=== PATIENT | female | born 1970 | race Caucasian/White ===

== ENCOUNTER 2020-12-04 05:11 | Emergency (ER) | payer MEDICAID, SELFPAY ==
[2020-12-04 05:18] VITALS: BP 142/84; PULSE 80; RESP 18; TEMP 36.4; O2SAT 97; BMI 21.5
--- NOTE | 2020-12-04 06:18 | ED_ITS ---
HPI - General Adult General Chief complaint: Back Pain/Injury Stated complaint: Neck/Back pain Time Seen by Provider: 12/04/20 05:59 Source: patient Mode of arrival: ambulatory Limitations: no limitations History of Present Illness HPI narrative: Patient has chronic pain syndrome been to neurologist physical therapist chiropractor PCP questionable diagnosis of fibromyalgia comes here for similar pain in the left upper back no acute trauma patient feels anxious has poor sleep lately not on medication for anxiety Related Data Previous Rx's Medication Instructions Recorded amitriptyline 25 mg tablet 25 mg PO BEDTIME #20 tab 12/04/20 tramadol 50 mg tablet 50 mg PO Q6H PRN #20 tab 12/04/20 Allergies Allergy/AdvReac Type Severity Reaction Status Date / Time No Known Allergies Allergy Verified 12/04/20 05:17 Review of Systems Review of Systems: Yes all other systems are reviewed and are negative [facility] Past Medical History Medical History No known health problems Social History Social History Advance Directives: No Advance Directives Information Provided: No Physical Exam Vital Signs: Vital Signs: Last Vital Signs Temp 97.6 F 12/04/20 05:18 Pulse 80 12/04/20 05:18 Resp 18 12/04/20 05:18 BP 142/84 H 12/04/20 05:18 Pulse Ox 97 12/04/20 05:18 Body Mass Index 21.5 Const: General: no acute distress Orientation/consciousness: patient oriented x3 HENMT: Head: Yes normocephalic Eyes: General: appearance normal, both eyes and all related structures Neck: Neck: Yes full ROM and No tender Chest: Chest palpation & inspection: normal palpation of entire chest wall Resp: Effort & Inspection: normal respiratory effort Auscultation: clear to auscultation bilaterally, no crackles and no rales Cardio: Palpation: normal PMI Rate: regular rate Rhythm: regular rhythm Heart sounds: S1 normal heart sound present and S2 normal heart sound present GI: Inspection: Yes normal to inspection Palpation (GI): Soft to palpation and nontender Back/Spine/Pelvis: Back/spine/pelvis image: 1. Diffuse muscle spasm and tenderness Skin: General skin exam: no rashes or lesions noted Neuro: General: patient oriented x3, moves all extremities, Normal light touch and pain sensation and no focal motor deficits Medical Decision Making MDM Narrative Medical decision making narrative: Patient's symptoms likely from fibromyalgia will give her amitriptyline and tramadol advised to follow with PCP Discharge Plan Discharge Clinical Impression: Fibromyalgia Patient Disposition: Home, Self-Care Instructions: Fibromyalgia (ED) Additional Instructions: Rest at home take pain medication and anxiety medication as prescribed and follow-up with PCP Prescriptions: New amitriptyline 25 mg tablet 25 mg PO BEDTIME Qty: 20 RF: 0 tramadol 50 mg tablet 50 mg PO Q6H PRN (Reason: pain) Qty: 20 RF: 0 Interventions: ED Discharge Assessment Last Done: 12/04/20 06:18
== END 2020-12-04 06:19 | disposition home or self-care (01) ==
PROVIDERS: Emergency Provider Internal Medicine
DX: M79.7 Fibromyalgia (principal); F41.9 Anxiety disorder, unspecified
CPT/HCPCS: 99283

== ENCOUNTER 2020-12-11 11:58 | Outpatient (REF) | payer MEDICAID, SELFPAY ==
--- NOTE | ~2020-12-11 | XR_ITS ---
EXAMINATION: XR SOFT TISSUE NECK CLINICAL INDICATION: Pain. COMPARISON: None TECHNIQUE: Lateral view of the cervical soft tissues. FINDINGS: Soft tissue films of the neck demonstrate a normal larynx, pharynx and upper trachea. No soft tissue swelling or opaque foreign body is demonstrated. Moderate degenerative disc disease at C5-C6. XR/XR soft tissue neck IMPRESSION: Unremarkable soft tissues. Moderate degenerative disc disease at C5-C6.
--- NOTE | ~2020-12-11 | XR_ITS ---
EXAMINATION: XR CERVICAL SPINE CLINICAL INFORMATION: Cervicalgia. COMPARISON: Cervical spine radiographs dated 08/13/2009. TECHNIQUE: AP, lateral, open-mouth, foraminal, and bilateral oblique views of the cervical spine. FINDINGS: Normal vertebral body alignment. The cervical lordosis is maintained. No acute fracture or subluxation. No loss of vertebral body height. Loss of intervertebral disc height with endplate osteophytes at C5-C6 with there is mild bilateral neural foraminal stenosis. Normal atlantoaxial alignment. Unremarkable prevertebral soft tissues. XR/XR cervical spine min 6V IMPRESSION: Mild degenerative disc disease at C5-C6 with mild bilateral neural foraminal stenosis.
--- NOTE | ~2020-12-11 | XR_ITS ---
EXAMINATION: XR SHOULDER, LEFT CLINICAL INFORMATION: Pain. COMPARISON: None TECHNIQUE: AP external rotation, Grashey, scapular Y, and axillary views of the left shoulder. FINDINGS: Small acromioclavicular marginal osteophytes. No glenohumeral joint space narrowing or marginal osteophytes. No osseous erosion. No abnormal soft tissue calcification. No acute fracture or subluxation. XR/XR shoulder LT min 2V IMPRESSION: Mild acromioclavicular osteoarthritis.
== END 2020-12-11 11:59 | disposition home or self-care (01) ==
LOC: HO.XRAY 11:58
PROVIDERS: Visit Provider Registered Nurse
DX: M25.512 Pain in left shoulder (principal); M54.2 Cervicalgia; M54.9 Dorsalgia, unspecified
CPT/HCPCS: 70360; 72052; 73030

== ENCOUNTER 2024-09-12 09:53 | Outpatient (REF) | payer MEDICAID, SELFPAY ==
--- OUTSIDE RECORDS SUMMARY | 2024-09-12 10:45 | XMS_ITS | Encounter Summary ---
Author Organization [employer] Address [address] [place] [address] Care Team Providers Care Physics Tutor Name Role Phone Sharri Nuñez MD Primary Care Provider [phone] Encounter Details Date Type Department Care Team (Latest Contact Info) Description 09/11/2024 Travel Social History Tobacco Use Types Packs/Day Years Used Date Smoking Tobacco: Former Cigarettes Passive Smoke Exposure: Never Smokeless Tobacco: Former Alcohol Use Standard Drinks/Week Comments Never 0 (1 standard drink = 0.6 oz pur e alcohol) Depression Answer Date Recorded Patient Health Questionnaire-9 Score 13 09/11/2024 Patient Health Questionnaire-9 Score 13 09/11/2024 Last PHQ-9: Questionnaire Data Not on file 0 09/11/2024 Housing Stability Answer Date Recorded What is your housing situation today? I have maximiliano sanderson 09/11/[address] you li ve. Do you have problems with any of the following? None of the above 09/11/2024 Food Insecurity Answer Date Recorded Within the past 12 months, y ou worried that your food would run out before you got money to buy more: Never True 09/11/2024 Within the past 12 months,th e food you bought just didn't last and you didn't have enough money to get more: Never True 04/2025 Transportation Answer Date Recorded In the past 12 months, has l ack of transportation kept you from medical appts, meetings, work or from getting things needed for daily living? No 09/11/2024 Utilities Answer Date Recorded In the past 12 months, has t he [employer], gas, oil or water company threatened to shut off services in your home? No 09/11/2024 Depression Answer Date Recorded Patient Health Questionnaire-2 Score 1 09/11/2024 Internet Access Answer Date Recorded Internet Access Q1 Yes 09/11/2024 Internet Access Q2 Not on file 09/11/2024 Comments Unknown Sex and Gender Information Value Date Recorded Sex Assigned at Female 03/02/2022 10:38 AM EDT Legal Sex Female 10:38 AM EDT Gender Identity Female 03/02/2022 10:38 AM EDT Sexual Orientation Straight 03/02/2022 10 :38 AM EDT documented as of this encounter Plan of Treatment Not on file documented as of this encounter Visit Diagnoses Not on filedocumented in this encounter Additional Health Concerns Assessment Noted Time PHQ-9 Depression Total Score: 13 025 2:12 PM EDT documented as of this encounter Care Teams Physics Tutor Relationship Specialty Start Date End Date Sharri Nuñez MD [address] [place] [id number] PCP - General Family Medicine 01/01/21 documented as of this encounter
--- OUTSIDE RECORDS SUMMARY | 2024-09-12 10:45 | XMS_ITS | Encounter Summary ---
Author Organization [employer] Address [address] [facility] [address] [place] [address] Care Team Providers Care Squirrel Man Name Role Phone Sharri Nuñez MD Primary Care Provider [phone] Reason for Referral * Imaging (Routine) - Authorized Specialty Diagnoses / Procedures Referred By Contac t Referred To Contact Radiology Diagnoses Breast cancer screening by mammogram Procedures BI Mammogram Screening Tomosynthesis Bilateral Sharri Nuñez MD [address] [place] [address] Phone: tel: fax: [address] Phone: tel: fax: Referral ID Status Reason Start Date Expiration Date V isits Requested Visits Authorized [id number] Authorized 09/11/2024 09/11/2025 1 1 * Consultation (Routine) - Pending Review Specialty Diagnoses / Procedures Referred By Contac t Referred To Contact Dermatology Diagnoses Skin tag Sharri Nuñez MD [address] [place] [phone] Phone: tel: fax: Referral ID Status Reason Start Date Expiration Date Visits Requested Visits Authorized [id number] Pending Review Specialty Services Required 09/11/2024 09/11/2025 1 1 Reason for Visit * Reason Comments polyarthalgia skin tags Memory Loss Encounter Details Date Type Department Care Team (Latest Contact Info) Description 09/11/2024 2:00 PM EDT Office Visit [facility] [address] [place] [address] Sharri Nuñez MD [address], [place] Polyarthralgia (Primary Dx); Memory deficit; Skin tag; Breast cancer screening by mammogram; GERD without esophagitis; Sacroiliac joint dysfunction of left side; Lumbar back pain with radiculopathy affecting left lower extremity; Encounter for health-related screening Social History Tobacco Use Types Packs/Day Years [...] the past 12 months, has t he electric, gas, oil or water company threatened to [...] AM EDT documented as of this encounter Last Filed Vital Signs Vital Sign Reading Time Taken Comments Blood Pressure 120/86 09/11/2024 2:01 PM EDT Pulse 82 09/11/2024 2:01 PM EDT Temperature 36.6 ??C (97.8 ??F) 09/11/2024 2:01 PM ED T Respiratory Rate 20 09/11/2024 2:01 PM EDT Oxygen Saturation 98% 09/11/2024 2:01 PM EDT Inhaled Oxygen Concentration - - Weight 64 kg (141 lb) 09/11/2024 2:01 PM EDT Height 157.5 cm (5' 2 ) 09/11/2024 2:01 PM EDT Body Mass Index 25.79 09/11/2024 2:01 PM EDT documented in this encounter Progress Notes * Sharri Nuñez MD - 09/11/2024 2:00 PM EDT Images from the original note were not included. Subjective Patient ID: Jessica Stanley is a 54 y.o. female who presents for polyarthalgia, skin tags, and Memory Loss. Jessica Stanley, a 54-year-old female who presents with significant joint pain throughout her body. She also reports memory issues and anxiety. The patient describes experiencing joint pain throughout her body, which she attributes to her diagnosed conditions of spinal scoliosis, hip dysplasia, and arthritis in the lower back and hip. She has been taking Diclofenac for pain management but reports that it causes acid reflux. Due to time constraints and financial reasons, she has not been able to attend physical therapy. To cope with her symptoms, she has been using a heat pad and performs stretches, but does not engage in regular exercise despite having access to a home gym. Jessica also mentions experiencing memory issues, which prompt her to write notes to remember things.She expresses concern about her memory. Additionally, the patient reports having anxiety, and sometimes feels overwhelmed. However, she is not interested in speaking with a therapist at this time. The patient is currently taking medication for allergies. She requests a prescription for lidocainepatches and a referral to a solution developer for skin tags. Jessica also mentions that she has not received her pneumonia or tetanus vaccines yet. She had a mammogram but has not been called for a follow-up appointment. Review of Systems Constitutional: Negative for appetite change, fatigue and fever. HENT: Negative for congestion, postnasal drip and rhinorrhea. Eyes: Negative for discharge and redness. Respiratory: Negative for apnea, cough, chest tightness and shortness of breath. Cardiovascular: Negative for chest pain. Gastrointestinal: Negative for abdominal pain. Endocrine: Negative for polyphagia. Genitourinary: Negative for difficulty urinating, dysuria and urgency. Musculoskeletal: Negative for arthralgias. Neurological: Negative for dizziness, light-headedness, numbness and headaches. Hematological: Negative for adenopathy. Does not bruise/bleed easily. Psychiatric/Behavioral: Positive for confusion. Negative for suicidal ideas. The patient is nervous/anxious. Objective Visit Vitals BP 120/86 (BP Location: Right arm, Patient Position: Sitting, BP Cuff Size: Adult) Pulse 82 Temp 97.8 ??F (36.6 ??C) (Oral) Resp 20 Ht 5' 2 (1.575 m) Wt 141 lb (64 kg) SpO2 98% BMI 25.79 kg/m?? Smoking Status Former BSA 1.67 m?? Physical Exam Constitutional: General: She is not in acute distress. Appearance: She is not ill-appearing. HENT: Head: Normocephalic and atraumatic. Nose: No congestion. Pulmonary: Effort: Pulmonary effort is normal. No respiratory distress. Breath sounds: Normal breath sounds. Musculoskeletal: Cervical back: Normal range of motion. Neurological: General: No focal deficit present. Mental Status: She is alert. Psychiatric: Mood and Affect: Mood normal. Assessment/Plan Problem List Items Addressed This Visit Sacroiliac joint dysfunction of left side Relevant Medications diclofenac (Cataflam) 50 MG tablet Lumbar back pain with radiculopathy affecting left lower extremity Relevant Medications diclofenac (Cataflam) 50 MG tablet Polyarthralgia - Primary - Prescribe lidocaine patches for pain management - Recommend continuation of heat therapy as tolerated - Send lab testing to yariel/o autoimmune etiology of her polyarthalgia - Encourage resumption of physical therapy when feasible Relevant Orders CBC auto differential Comprehensive Metabolic Panel RALF Screen,IFA, with Reflex to Titer and Pattern Rheumatoid Factor Cyclic Citrullinated Peptide (CCP) Antibody (IgG) Hepatitis A,B,C Profile TSH W/Reflex to FT4 Sed Rate by Modified Westergren C-reactive Protein HIV-1/2 Antigen and Antibodies, Fourth Generation, with Reflexes Memory deficit Patient reports experiencing memory problems, requiring her to write notes to remember things. Given her concerns, further evaluation is warranted to rule out potential underlying causes. Ddx pseudodementia Plan: - Order thyroid function tests - Order Lyme disease screening - Discuss results and potential need for further cognitive assessment at follow-up Relevant Orders TSH W/Reflex to FT4 Lyme Disease Ab with Reflex to Blot (IgG, IgM) Syphilis Screen Other Visit Diagnoses Skin tag Relevant Orders Referral to Dermatology Breast cancer screening by mammogram Relevant Orders BI Mammogram Screening Tomosynthesis Bilateral GERD without esophagitis Stable on Omeprazole Relevant Medications omeprazole (PriLOSEC) [address] capsule Encounter for health-related screening Relevant Orders Lipid Panel, Standard documented in this encounter Miscellaneous Notes * Assessment & Plan Note - Sharri Nuñez MD - 09/11/2024 5:02 PM EDT Associated Problem(s): Polyarthralgia - Prescribe lidocaine patches for pain management - Recommend continuation of heat therapy as tolerated - Send lab testing to r/o autoimmune etiology of her polyarthalgia - Encourage resumption of physical therapy when feasible * Assessment & Plan Note - Sharri Nuñez MD - 09/11/2024 5:01 PM EDT Associated Problem(s): Memory deficit Patient reports experiencing memory problems, requiring her to write notes to remember things. Given her concerns, further evaluation is warranted to rule out potential underlying causes. Ddx pseudodementia Plan: - Order thyroid function tests - Order Lyme disease screening - Discuss results and potential need for further cognitive assessment at follow-up documented in this encounter Plan of Treatment Scheduled Orders Name Type Priority Associated Diagnoses Orde r Schedule CBC auto differential Lab Routine Polyarthralgia Expected: 09/11/2024 (Approximate), Expires: 09/11/2025 Comprehensive Metabolic Panel Lab Routine Polyarthralgia Expected: 09/11/2024 (Approximate), Expires: 09/11/2025 RALF Screen,IFA, with Reflex to Titer and Pattern Lab Routine Polyarthralgia Expected: 09/11/2024 (Approximate), Expires: 09/11/2025 Rheumatoid Factor Lab Routine Polyarthralgia Expected: 09/11/2024, Expires: 09/11/2025 Cyclic Citrullinated Peptide (CCP) Antibody (IgG) Lab Routine Polyarthralgia Expected: 09/11/2024 (Approximate), Expires: 09/11/2025 Hepatitis A,B,C Profile Lab Routine Polyarthralgia Expected: 09/11/2024, Expires: 09/11/2025 TSH W/Reflex to FT4 Lab Routine Polyarthralgia Memory deficit Expected: 09/11/2024 (Approximate), Expires: 09/11/2025 Lyme Disease Ab with Reflex to Blot (IgG, IgM) Lab Routine Memory deficit Expected: 09/11/2024, Expires: 09/11/2025 Sed Rate by Modified Westergren Lab Routine Polyarthralgia Expected: 09/11/2024, Expires: 09/11/2025 C-reactive Protein Lab Routine Polyarthralgia Expected: 09/11/2024 (Approximate), Expires: 09/11/2025 Syphilis Screen Lab Routine Memory deficit Expected: 09/11/2024, Expires: 09/11/2025 HIV-1/2 Antigen and Antibodies, Fourth Generation, with Reflexes Lab Routine Polyarthralgia Expected: 09/11/2024 (Approximate), Expires: 09/11/2025 BI Mammogram Screening Tomosynthesis Bilateral Imaging Routine Breast cancer screening by mammogram Expected: 09/11/2024, Expires: 11/11/2025 Lipid Panel, Standard Lab Routine Encounter for health-related screening Expected: 09/11/2024 (Approximate), Expires: 09/11/2025 Scheduled Referrals Name Type Priority Associated Diagnoses Order Schedule Referral to Dermatology Outpatient Referral Routine Skin tag Expected: 09/11/2024 (Approximate), Expires: 09/11/2025 documented as of this encounter Visit Diagnoses Diagnosis Polyarthralgia- Primary Pain in joint, multiple sites Memory deficit Memory loss Skin tag Unspecified hypertrophic and atrophic condition of skin Breast cancer screening by mammogram GERD without esophagitis Esophageal reflux Sacroiliac joint dysfunction of left side Lumbar back pain with radiculopathy affecting left lower extremity Encounter for health-related screening documented in this encounter Additional Health Concerns Assessment Noted Time PHQ-9 Depression Total Score: 13 025 2:12 PM EDT documented as of this encounter Care Teams Squirrel Man Relationship Specialty Start Date End Date Sharri Nuñez MD [address] [place] [address] PCP - General Family Medicine 01/01/21 documented as of this encounter
--- OUTSIDE RECORDS SUMMARY | 2024-09-12 10:45 | XMS_ITS | Encounter Summary ---
Author Organization [employer] Address [address] [place] [address] Care Team Providers Care Bioprocess Engineer Name Role Phone Sharri Nuñez MD Primary Care Provider [phone] Reason for Visit * Reason Onset Date Comments Appointment Request 08/18/2024 Encounter Details Date Type Department Care Team ([facility] st Contact Info) Description 08/18/2024 Telephone [facility] [address] [place] [address] Sharri Nuñez MD [address] [place] [address] Appointment Request Social History Tobacco Use Types Packs/Day Years Used Date Smoking Tobacco: Former Cigarettes Passive Smoke Exposure: Never Smokeless Tobacco: Former Alcohol Use Standard Drinks/Week Comments Never 0 (1 standard drink = 0.6 oz pur e alcohol) Depression Answer Date Recorded Patient Health Questionnaire-9 Score 8 08/19/2023 Patient Health Questionnaire-9 Score 8 08/19/2023 Last PHQ-9: Questionnaire Data Not on file 0 08/19/2023 Housing Stability Answer Date Recorded What is your housing situation today? I have maximiliano sanderson 08/11/[address] you li ve. Do you have problems with any of the following? None of the above 08/11/2023 Food Insecurity Answer Date Recorded Within the past 12 months, y ou worried that your food would run out before you got money to buy more: Never True 08/11/2023 Within the past 12 months,th e food you bought just didn't last and you didn't have enough money to get more: Never True 02/2024 Transportation Answer Date Recorded In the past 12 months, has l ack of transportation kept you from medical appts, meetings, work or from getting things needed for daily living? No 08/11/2023 Utilities Answer Date Recorded In the past 12 months, has t he electric, gas, oil or water company threatened to shut off services in your home? No 08/11/2023 Depression Answer Date Recorded Patient Health Questionnaire-2 Score 1 08/19/2023 Comments Unknown Sex and Gender Information Value Date Recorded Sex Assigned at Female 03/02/2022 10:38 AM EDT Legal Sex Female 10:38 AM EDT Gender Identity Female 03/02/2022 10:38 AM EDT Sexual Orientation Straight 03/02/2022 10 :38 AM EDT documented as of this encounter Miscellaneous Notes * Telephone Encounter - Yessenia Regalado - 08/18/2024 10:36 AM EDT Tc from pt requesting schedule appointment with pcp. Recall july documented in this encounter Plan of Treatment Not on file documented as of this encounter Visit Diagnoses Not on filedocumented in this encounter Additional Health Concerns Assessment Noted Time PHQ-9 Depression Total Score: 8 08/19/19 24 10:22 AM EDT documented as of this encounter Care Teams Bioprocess Engineer Relationship Specialty Start Date End Date Sharri Nuñez MD [address] [place] [id number] PCP - General Family Medicine 01/01/21 documented as of this encounter
--- OUTSIDE RECORDS SUMMARY | 2024-09-12 10:45 | XMS_ITS | Clinical Summary ---
Author Organization [employer] Address [address] [facility] [address] [place] [address] Care Team Providers Care V Groove Cutter Name Role Phone Sharri Nuñez MD Primary Care Provider [phone] Allergies No known active allergies Medications albuterol (2.5 MG/3ML) 0.083% nebulizer solution Inhale 3 mL every 6 (six) hours. 11/14/19 22 Active ergocalciferol (Vitamin D-2) 1.25 MG (82927 UT) capsule Take 1 capsule once a week for 8 weeks, then start vitamin D3 01/16/20 22 Active Fluticasone-Salm eterol (Advair Diskus) 250-50 MCG/ACT aerosol powder Inhale. 04/03/20 21 Active montelukast (Singulair) 10 MG tablet Take 10 mg by mouth at bedtime. 01/08/20 23 Active fluticasone (Flonase) 50 MCG/ACT nasal spray Administer 2 sprays into each nostril in the morning. 04/14/20 23 Active Ketotifen Fumarate 0.035 % solution PLACE ONE DROP EACH EYE TWICE A DAY NEEDED 04/14/20 23 Active cetirizine (ZyrTEC) 10 MG tablet Take 10 mg by mouth Once per day. 08/17/19 25 Active lidocaine (Lidoderm) 5 % patch Apply 1 patch topically Once per day. Remove & discard patch within 12 hours or as directed by MD. 30 patch 2 09/12/19 25 Active omeprazole (PriLOSEC) [address] capsuleIndicatio ns:GERD without esophagitis Take 1 capsule (20 mg) by mouth Once per day. 90 capsule 1 09/12/19 25 Active diclofenac (Cataflam) 50 MG tabletIndication s:Sacroiliac joint dysfunction of left side,Lumbar back pain with radiculopathy affecting left lower extremity Take 1 tablet (50 mg) by mouth 3 times daily. 90 tablet 09/12/19 25 Active omeprazole (PriLOSEC) [address] capsuleIndicatio ns:GERD without esophagitis Take 1 capsule (20 mg) by mouth in the morning. 90 capsule 1 08/19/19 24 2024 Discontinued(R eorder (will not trigger notification to Pharmacy)) lidocaine (Xylocaine) 5 % ointment Apply topically if needed for mild pain. 200 g 2 08/19/19 24 2024 baclofen (Lioresal) 10 MG tabletIndication s:Sacroiliac joint dysfunction of left side,Lumbar back pain with radiculopathy affecting left lower extremity TAKE 1 TABLET BY MOUTH EVERYDAY AT BEDTIME 90 tablet 1 01/21/20 24 2024 Discontinued(T herapy completed) diclofenac (Cataflam) 50 MG tabletIndication s:Sacroiliac joint dysfunction of left side,Lumbar back pain with radiculopathy affecting left lower extremity TAKE 1 TABLET BY MOUTH 3 TIMES DAILY 90 tablet 02/15/20 24 2024 Discontinued(R eorder (will not trigger notification to Pharmacy)) Active Problems Problem Noted Date Diagnosed Date Polyarthralgia 09/11/2024 Assessment & Plan (09/11/2024 5:02 PM EDT): - Prescribe lidocaine patches for pain management - Recommend continuation of heat therapy as tolerated - Send lab testing to r/o autoimmune etiology of her polyarthalgia - Encourage resumption of physical therapy when feasible Memory deficit 09/11/2024 Assessment & Plan (09/11/2024 5:01 PM EDT): Patient reports experiencing memory problems, requiring her to write notes to remember things. Given her concerns, further evaluation is warranted to rule out potential underlying causes. Ddx pseudodementia Plan: - Order thyroid function tests - Order Lyme disease screening - Discuss results and potential need for further cognitive assessment at follow- up History of hysterectomy for benign disease 01/24 Well woman exam 01/25/2024 Assessment & Plan (01/25/2024 11:54 AM EDT): Patient had presented for cervical CA screening, but had hysterectomy due to benign reasons. Mammo was updated and care gaps were closed. Declined pelvic exam. Sacroiliac joint dysfunction of left side 2023 Assessment & Plan (12/30/2023 4:22 PM EDT): Relevant orders: Diclofenac (Cataflam) 50 MG Baclofen (Lioresal) 10 MG Referral to Chiropractic Referral to Physical Therapy XR- Lumbar Spine 2-3 Views XR- Hip 2 or 3 Views Left Lumbar back pain with radicu lopathy affecting left lower extremity 12/30/2023 Assessment & Plan (12/30/2023 4:24 PM EDT): Rotation of the anterior hip and spasms on PE. Relevant orders: Diclofenac (Cataflam) 50 MG Baclofen (Lioresal) 10 MG Referral to Physical Therapy XR- Lumbar Spine 2-3 Views XR- Hip 2 or 3 Views Left Moderate persistent asthma without complication 08/19/2023 Assessment & Plan (08/19/2023 10:45 PM EDT): Continue current regimen. Monitor for effectiveness and side effects. Decreased libido 06/18/2022 Right kidney stone 04/21/2022 Assessment & Plan (07/07/2022 5:07 PM EST): Has pending appt with urology, at this point she will followup with them Assessment & Plan (04/21/2022 4:45 PM EST): Reviewed [facility] ED notes, R sided hydronephrosis, with probable small distal uretheral calculus. At this point will cont pain med, patient unable to wait for toradol injection at this time. Cont flomax. Referral to urology. Work excuse given Elevated blood pressure reading 04/21/2022 Assessment & Plan (04/21/2022 4:47 PM EST): In the setting of severe pain, will cont monitoring f/u in 4-6 weeks. Encounters Date Type Department Care Team Description 09/11/2024 2:00 PM EDT Office Visit [facility] [address] [place] [address] Sharri Nuñez MD Polyarthralgia (Primary Dx); Memory deficit; Skin tag; Breast cancer screening by mammogram; GERD without esophagitis; Sacroiliac joint dysfunction of left side; Lumbar back pain with radiculopathy affecting left lower extremity; Encounter for health-related screening 09/11/2024 Travel 09/04/2024 Patient Outreach [facility] [address] [place] [phone] Sharri Nuñez MD Pre-visit Planning (Pre visit planning LVM ) 08/18/2024 Telephone [facility] [address] [place] [phone] Sharri Nuñez MD Appointment Request from Last 3 Months Immunizations Name Administration Dates Next Due Influenza, IIV3, injectable 04/10/2014,1 ,01/18/2012,02/13,05/28/2009,05/20/2006 Novel [id number], preservative-free 05/28/2009 Pneumococcal Polysaccharide PPSV23 04/10/2014 TD (adult), 2 Lf tetanus tox oid, preservative free, adsorbed 09/01/2005 Tdap 04/10/2014 Zoster, Recombinant 08/24/2022,06/18/2022 Social History Tobacco Use Types Packs/Day Years Used Date Smoking Tobacco: Former Cigarettes Passive Smoke Exposure: Never Smokeless Tobacco: Former Tobacco Cessation:Counseling Given: Not Answered Alcohol Use Standard Drinks/Week Comments Never 0 [...] Orientation Straight 03/02/2022 10 :38 AM EDT Last Filed Vital Signs Vital Sign Reading [...] Mass Index 25.79 09/11/2024 2:01 PM EDT Plan of Treatment Health Maintenance Due Date Last Done Comments CT Colonography 1972 Colonoscopy 1972 FIT 1972 FOBT 1972 HIV Screening 1972 Sigmoidoscopy 1972 Family Planning (PISQ) 1987 Hepatitis C Screening 1990 Hepatitis B Vaccines (1 of 3 - 19+ 3-dose series) 1991 Pap Smear 1993 HPV/Cotest 2002 Pneumococcal Vaccine: 50+ Years (2 of 2 - PCV) 04/10/2015 04/10/2014 DTaP/Tdap/Td Vaccines (2 - Td or Tdap) 04/10/2024 04/10/2014, 09/01/2005 Mammogram 09/13/2024 09/14/2023 COVID-19 Vaccine ( season) 2024 04/02/2022, 04/22/2021, 08/12/2020, Additional history exists Postponed from 01/02/2024 (Supply/Drug Shortage) Influenza Vaccine (#1) 2024 4, 02/20/2013, 01/18/2012, Additional history exists Postponed from 01/02/2024 (Supply/Drug Shortage) Colorectal Cancer Screening 07/22/2025 FIT DNA/Cologuard 07/22/2025 07/22/2022 Alcohol/Substance Use Screening 09/11/2025 09/11/2024 Depression Screening 09/11/2025 09/11/2024, 09/12/19 25 SDOH Screening 09/11/2025 09/11/2024 Tobacco Screening 09/11/2025 09/11/2024 RSV Patients and Patients Aged 60 years or older (1 - 1-dose 75+ series) 2047 Zoster Vaccines Completed 08/24/2022, 06/18/2022 Cervical Cancer Screening Discontinued HIB Vaccines Aged Out No longer eligi ble based on patient's age to complete this topic HPV Vaccines Aged Out No longer eligi ble based on patient's age to complete this topic Hepatitis A Vaccines Aged Out No long er eligible based on patient's age to complete this topic IPV Vaccines Aged Out No longer eligi ble based on patient's age to complete this topic Meningococcal Vaccine Aged Out No akilah harsha eligible based on patient's age to complete this topic RSV under 20 months Aged Out No longe r eligible based on patient's age to complete this topic Rotavirus Vaccines Aged Out No longer eligible based on patient's age to complete this topic Procedures Procedure Name Priority Date/Time Associated Diagnosis Comments MAMMOGRAPHY Routine 09/14/2023 LAB COLOGUARD?? COLON CANCER SCREEN Routine 07/22/2022 from Last 3 Months or Most Recently Relevant to Health Maintenance Results * Mammography (09/14/2023) Mammogram BIRADS 1 Normal, Abnormal, BIRADS 1 , BIRADS 2 Anatomical Region Laterality Modality Other Narrative 09/14/2023 09/08/23 Mammo with Upper outer quadrant Left breast asymmetry had compression test (09/14/23) and it was normal. Records scanned in EMR from [facility] Sharri Nuñez MD HEALTH MAINTENANCE Final Resu lt * Cologuard?? colon cancer screening (07/22/2022) Cologuard Cancer Screen Negative Stool 07/22/2022 us Sharri Nuñez MD LAB MOLECULAR DIAGNOSTICS ORD ERABLES Final Result from Last 3 Months or Most Recently Relevant to Health Maintenance [place] [address] [place] [address] , [address] [place] [id number] Care Teams V Groove Cutter Relationship Specialty Start Date End Date Sharri Nuñez MD [address] [place] [id number] PCP - General Family Medicine 01/01/21
--- OUTSIDE RECORDS SUMMARY | 2024-09-12 10:45 | XMS_ITS | Clinical Summary ---
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 Machine Operator Name Role Phone Unavailable Primary Care Provider Unavailabl e Surgical History Surgery Date Site/Laterality Comments SECTION PROCEDURE: HISTORICAL TUBAL LIGATION PROCEDURE: HISTORICAL TUBAL LIGATION OTHER SURGICAL HISTORY 01/2018 PROCEDURE: LAPAROSCOPY, SURGICAL/HYSTERECTOMY; COMMENT: with bilateral salpingectomy robotically Medical History Medical History Date Comments Polycystic ovaries 09/01/2005 DX:Polycystic ovaries Esophageal reflux 09/01/2005 DX:Esophageal reflux Allergic rhinitis, cause unspecified 09/01/2005 DX:Allergic rhinitis, cause unspecified Depressive disorder, not els ewhere classified 09/01/2005 DX:Depressive disorder, not elsewhere classified Arthritis DX:Arthritis Other specified personal his tory presenting hazards to health(V15.89) 1989 DX:Other specifie d personal history presenting hazards to health(V15.89); COMMENT: HPV froozen treatment Iron deficiency anemia 08/24/2017 DX:Iron d eficiency anemia Family History Medical History Relation Name Comments Stroke Mother age 57 Coronary artery disease Paternal Grandmother Diabetes Paternal Grandmother Breast cancer Neg Hx Colon cancer Neg Hx Ovarian cancer Neg Hx Relation Name Status Comments Mother hypertension, h yperlipidemia, CVA Paternal Grandmother diabete s, hypertension and hyperlipidemia Social History Tobacco Use Types Packs/Day Years Used Date Smoking Tobacco: Former Cigarettes Q uit: 05/03/2008 Smokeless Tobacco: Never Alcohol Use Standard Drinks/Week Comments No 0 (1 standard drink = 0.6 oz pur e alcohol) Comments Unknown Sex and Gender Information Value Date Recorded Sex Assigned at Not on file Legal Sex Female 4:15 AM EST Gender Identity Not on file Sexual Orientation Not on file Obstetrics History Plan of Treatment Health Maintenance Due Date Last Done Comments Hepatitis B Vaccines (1 of 3 - 19+ 3-dose series) 1991 Pneumococcal Vaccine: 50+ Years (2 of 2 - PCV) 04/10/2015 04/10/2014 Pneumococcal Vaccine: Pediatrics (0 to 5 Years) and At-Risk Patients (6 to 64 Years) (2 of 2 - PCV) 04/10/2015 04/10/2014 Cervical Cancer Screening: Pap Smear 09/30/2020 09/30/2017 Zoster Vaccines (1 of 2) 2022 Colorectal Cancer Screening: Colonoscopy 04/05/2022 Depression Screening 04/05/2022 HIV Screening 04/05/2022 Hepatitis C Screening 04/05/2022 Social Influencers of Health Screening 04/05/2022 COVID-19 Vaccine ( season) 2024 DTaP,Tdap,and Td Vaccines (3 - Td or Tdap) 04/10/2024 04/10/2014, 09/01/2005 Influenza Vaccine (Season Ended) 2025 04/10/2014, 02/20/2013, 01/18/2012, Additional history exists Breast Cancer Screening 09/09/2025 09/10/19 24, 07/06/2018, 06/28/2017 HIB Vaccines Aged Out No longer eligi [...] on patient's age to complete this topic MMR Vaccines Aged Out No longer eligi ble based on patient's age to complete this topic Meningococcal ACWY Vaccine Aged Out N o longer eligible based on patient's age to complete this topic Meningococcal B Vaccine Aged Out No l onger eligible based on patient's age to complete this topic RSV Immunization Patients Under 20 months Aged Out No longer eligible based on patient's age to complete this topic Varicella Vaccines Aged Out No longer eligible based on patient's age to complete this topic Procedures Procedure Name Priority Date/Time Associated Diagnosis Comments DOMINICK SCREENING DIGITAL Routine 09/10/2023 8:28 AM EDT Encounter for screening mammogram for malignant neoplasm of breast PAP SMEAR Routine 09/30/2017 from Last 3 Months or Most Recently Relevant to Health Maintenance Results * [facility] SCREENING DIGITAL (09/10/2023 8:28 AM EDT) Anatomical Region Laterality Modality Mammography 09/08/2023 9:04 AM EDT Narrative 09/10/2023 8:28 AM EDT [facility] Diagnostic Imaging Department [address] [place] [address] Patient: ??MILES HAUSER ?/Age/Sex: 1970 - 53 - F Unit#: ??[id number] ? Location/Status: ??SPDIMAM/REG CLI ? Mnemonic/Ordering Site: ??DIGSC/SPMAM Ordering Physician: ??SHARRI NUÑEZ MD [facility] Screening Digital - 09/08/23938 Report Status:Signed EXAM: [facility] Screening Digital EXAM DATE AND TIME: 09/08/2023 9:39 AM HISTORY: ??Annual screening COMPARISON: ??Multiple exams dating back to 2016 TECHNIQUE: Bilateral digital breast tomosynthesis was performed in the CC and MLO projections. Computer aided detection with MAD Incubator 3D 3.1 was employed. TISSUE DENSITY: b. There are scattered areas of fibroglandular density. FINDINGS: Possible developing asymmetry in the upper-outer quadrant of the left breast seen on the MLO view. ??No associated calcification or architectural distortion. The right breast is unremarkable. IMPRESSION: Possible developing asymmetry in the upper-outer quadrant of the left breast seen on the MLO view. ??Recommend diagnostic mammogram of the left breast with spot compression MLO tomographic imaging. BI-RADS: ??Category 0: Incomplete - Need Additional Imaging Evaluation Dictating Physician: ??PORTER LACY MD Electronically Signed by: ??PORTER LACY MD Dic Date/Time: ??09/10/23825 Sign date/Time: ??09/10/23827 Procedure Note Porter Lacy MD - 12/20/2023 [facility] Diagnostic Imaging Department [address] [place] [address] Patient: MILES HAUSER./Age/Sex: 1970 - 53 - F Unit#: [id number] Location/Status: [facility] CLI Mnemonic/Ordering Site: [facility] Ordering Physician: SHARRI NUÑEZ MD [facility] Screening Digital - 09/08/23 - 0939 Report Status:Signed EXAM: [facility] Screening Digital EXAM DATE AND TIME: 09/08/2023 9:39 AM HISTORY: Annual screening COMPARISON: Multiple exams dating back to 2016 TECHNIQUE: Bilateral digital breast tomosynthesis was performed in the CCand MLO projections. Computer aided detection with MAD Incubator 3D 3.1was employed. TISSUE DENSITY: b. There are scattered areas of fibroglandular density. FINDINGS: Possible developing asymmetry in the upper-outer quadrant of the leftbreast seen on the MLO view. No associated calcification or architecturaldistortion. The right breast is unremarkable. IMPRESSION: Possible developing asymmetry in the upper-outer quadrant of the leftbreast seen on the MLO view. Recommend diagnostic mammogram of the left breastwith spot compression MLO tomographic imaging. BI-RADS: Category 0: Incomplete - Need Additional Imaging Evaluation Dictating Physician: PORTER LACY MD Electronically Signed by: PORTER LACY MD Dic Date/Time: 09/10/23825 Sign date/Time: 09/10/23827 us Sharri Nuñez MD IMG BI PROCEDURES Final Resul t * Pap smear (09/30/2017) 09/30/2017 Narrative HISTORICAL TESTING LAB RESULTING AGENCY - 10/04/2017 2:37 PM EDT [id number] THINPREP PAP, IMAGED: NEGATIVE FOR SQUAMOUS INTRAEPITHELIAL LESION AND MALIGNANCY ??. RESULT OF APTIMA HIGH RISK HPV ASSAY: ? NEGATIVE ?? (SEROTYPES 16,18,31,33,35,39,45,51,52,56,58,59,66,68) JENNY VILLAR(ASCP) (CASE ELECTRONICALLY SIGNED 10 04 2017) ADEQUACY: SATISFACTORY. ENDOCERVICAL/TRANSFORMATION ZONE COMPONENT PRESENT. SOURCE: THINPREP PAP HPV ANY DX: ??REFLEX 16 AND 18, CERVICAL, IMAGED: CLINICAL INFORMATION: HPV ANY DIAGNOSIS. Z12.4, PAP HX: NEGATIVE us Karyna Todd MD LAB CYTOLOGY ORDERABLES Final Result HISTORICAL TESTING LAB RESULTING AGENCY from Last 3 Months or Most Recently Relevant to Health Maintenance
--- OUTSIDE RECORDS SUMMARY | 2024-09-12 10:45 | XMS_ITS | Encounter Summary ---
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 Name Role Phone Sharri Nuñez MD Primary Care Provider [phone] Reason for Visit * Reason Onset Date Comments Appointment Request 09/14/2023 Encounter Details Date Type Department Care Team ([facility] st Contact Info) Description 09/14/2023 Telephone [facility] [address] [place] [address] Sharri Nuñez MD [address] [place] [address] Appointment Request Social History Tobacco Use Types [...] encounter Miscellaneous Notes * Telephone Encounter - Niya Luna - 09/14/2023 9:23 AM EDT Tc from pt requesting r/s PAP appt documented in this encounter Plan of Treatment Not on file documented as of this encounter Visit Diagnoses Not on filedocumented in this encounter Additional Health Concerns Assessment Noted Time PHQ-9 Depression Total Score: 8 08/19/19 24 10:22 AM EDT documented as of this encounter Care Teams V Belt Mold Assembler And Curer Relationship Specialty Start Date End Date Sharri Nuñez MD [address] [place] [id number] PCP - General Family Medicine 01/01/21 documented as of this encounter
[2024-09-12 14:14] LABS: MANUAL DIFF FLAG NO
[2024-09-12 14:21] LABS: Basophils Absolute Auto 0.1 X10*3/uL (0.0-0.2); Eosinophils Absolute Auto 0.1 X10*3/uL (0.0-0.4); Hematocrit 34.7 % (37.0-47.0); Hemoglobin 11.8 g/dl (12.0-16.0); Imm Gran Abs Auto 0.01 X10*3/uL (0.00-0.03); Imm Gran Pct Auto 0.1 % (0.0-0.4); Lymphocytes Absolute Auto 1.6 X10*3/uL (1.2-4.9); Mean Corpuscular Hemoglobin 29.1 pg (27.0-33.0); Mean Corpuscular Volume 85.7 fL (80.0-98.0); Mean Platelet Volume 11.5 fL (9.4-12.3); Monocytes Absolute Auto 0.4 X10*3/uL (0.1-1.2); Monocytes Percent Auto 6.2 % (2-11); Neutrophils Absolute Auto 4.9 x10*3/uL (2.0-8.3); Neutrophils Percent Auto 68.7 % (45-73); Platelet Count 252 X10*3/uL (160-400); Red Blood Count 4.05 X10*6/uL (4.20-5.50); White Blood Count 7.1 X10*3/uL (4.8-10.8)
[2024-09-12 14:51] LABS: Alanine Aminotransferase 20 U/L (0-31); Albumin Level 4.4 g/dL (3.5-5.0); Alkaline Phosphatase 92 U/L (39-117); Anion Gap 11 (12-20); Aspartate Amino Transferase 26 U/L (5-31); Bilirubin Total 0.4 mg/dL (0.0-1.0); Blood Urea Nitrogen 14 mg/dL (9-16); C Reactive Protein < 0.04 mg/dL (< or = 0.50); Calcium 9.4 mg/dL (8.4-10.2); Carbon Dioxide 28 mmol/L (22-29); Chloride 105 mmol/L (96-108); Cholesterol 281 mg/dL (<200); Estimated Glomerular Filt Rate > 60; Glucose Random 72 mg/dL (60-115); HDL Cholesterol 64 mg/dL (>40); LDL Cholesterol Calculated 193 mg/dL (<100); Potassium 4.2 mmol/L (3.3-5.1); Sodium 140 mmol/L (135-145); Total Protein 7.2 g/dL (6.5-8.0); Triglycerides 122 mg/dL (<150)
[2024-09-12 14:55] LABS: TSH reflex Free T4 0.71 uIU/mL (0.32-4.0)
[2024-09-12 15:03] LABS: Erythrocyte Sedimentation Rate 7 MM/HR (0-20)
[2024-09-12 16:08] LABS: Rheumatoid Factor < 13.0 IU/mL (<15.0)
[2024-09-13 05:28] LABS: Lyme Abs Screen <0.90 index
[2024-09-13 08:32] LABS: Syphilis Screen Nonreactive (Nonreactive)
[2024-09-13 08:53] LABS: HBS Num1 268.87 mIU/mL (0-7.99); HBc Num1 0.09 S/CO (0.00-0.79); HBsAGNum1 0.38 S/CO (0.00-0.99); HIV AB/AG Nonreactive (Nonreactive); HIV Num 1 0.06 S/CO (0.00-0.99); Hepatitis A Antibody IgM 0.12 Index (0-0.79); Hepatitis B Core Antibody Nonreactive (Nonreactive); Hepatitis B Surface Antigen Negative (Negative); ~HepC Num1 0.08 S/CO (0.00-0.79); ~Hepatitis A Antibody IgM Nonreactive (Nonreactive); ~Hepatitis B Surface Antibody REACTIVE (Nonreactive); ~Hepatitis C Antibody Nonreactive (Nonreactive)
[2024-09-13 12:03] LABS: Anti Nuclear Antibody Screen NEGATIVE (NEGATIVE)
[2024-09-14 13:09] LABS: Cyclic Citrullinated Peptide <16 UNITS
== END 2024-09-12 09:54 | disposition home or self-care (01) ==
LOC: HO.CHCLDS 09:53
PROVIDERS: Visit Provider Family Medicine
DX: M25.50 Pain in unspecified joint (principal); R41.3 Other amnesia; Z13.9 Encounter for screening, unspecified
CPT/HCPCS: 36415; 80053; 80061; 84443; 85025; 85652; 86038; 86140; 86200; 86431; 86617; 86618; 86704; 86706; 86709; 86780; 86803; 87340; 87389

== ENCOUNTER 2024-11-20 10:02 | Outpatient (AMB) | payer MEDICAID, SELFPAY ==
[2024-11-20 10:33] VITALS: BP 171/74; PULSE 75; RESP 16; O2SAT 100; BMI 25.4
--- NOTE | 2024-11-20 10:33 | A.OFFVIS_ITS ---
Vital Signs 11/20/24 10:33 Height 5 ft 2 in Weight 139 lb BMI 25.4 BP 171/74 H Blood Pressure Location Lt brachial Position Sitting Respiration 16 Pulse 75 Pulse Source Pulse Oximeter Pulse Oximetry (%) 100 Oxygen Delivery Method Room Air Intake Visit Reasons: Lumbar back pain/SI joint dysfunction Room Service Food Server Required: No Accompanied by: Self / Same As Patient Allergies No Known Allergies Allergy (Verified 11/20/24 10:37) HPI HPI Lumbar back pain/SI joint dysfunction: Details: History of Present Illness The patient is a 54-year-old female presenting with chronic pain management concerns, particularly in the neck, lower back, knees, and left side. The patient reports diffuse pain affecting her neck, lower back, knees, and entire left side, which has been persistent and challenging to manage despite multiple interventions. She has consulted numerous doctors and undergone various physical therapies without significant relief. The patient has a history of cervical disc degeneration and sacroiliac joint pain, which have been contributing to her chronic pain. She experiences diffuse tenderness in the lumbar spine along the sacroiliac joint, with positive provocation of the SI joint on the left side. She has been diagnosed with hip dysplasia and spinal scoliosis, which were identified through imaging conducted approximately two to three years ago. These conditions have likely exacerbated her pain symptoms. The patient has tried various medications, including diclofenac, with limited success in managing her pain. She has also undergone epidural and cortisone injections, which provided temporary relief but were associated with adverse effects such as fever and nausea. The patient reports significant limitations in her daily activities due to pain, including difficulty moving her neck and a burning sensation in her back. She has had to cancel planned activities, such as a vacation, due to her inability to sit for extended periods. The patient has a history of hypertension, which is being managed alongside her chronic pain conditions. Pain Description - Onset: Persistent pain in neck, lower back, knees, and left side - Quality: Burning sensation in the back - Location: Entire left side, neck, lower back, knees - Exacerbating factors: Movement, prolonged sitting - Relieving factors: None significantly effective - Interference: Limits daily activities, canceled vacation plans Physical Exam - Lumbar spine: Diffuse tenderness along the sacroiliac joint - Sacroiliac joint: Positive provocation with favor of SI joint compression on the left side Results - Imaging: Previous MRIs indicated hip dysplasia and spinal scoliosis Pain Management - Affect: Pain is causing frustration and fear - Analgesia: Currently using diclofenac with limited relief - Adverse Effects: Previous epidural and cortisone injections caused fever and nausea - Activities of Daily Living: Pain limits movement and daily activities, including travel - Aberrant Drug Related Behaviors: None reported [facility] Medical History (Updated 11/20/24 @ 11:33 by Josesito Hutchison MD) Psychosocial stressors Hypertension Chronic back pain Ankle injury No known health problems Surgical History (Updated 11/20/24 @ 10:40 by Lisbeth Kinney MA) History of hysterectomy S/P Physical Exam Vital Signs: Last Vital Signs Pulse 75 11/20/24 10:33 Resp 16 11/20/24 10:33 BP 171/74 H 11/20/24 10:33 Pulse Ox 100 11/20/24 10:33 Oxygen Delivery Method Room Air 11/20/24 10:33 BMI result Body Mass Index 25.4 Assessment & Plan Assessment & Plan (1) Chronic back pain: Code(s): M54.9 - Dorsalgia, unspecified; G89.29 - Other chronic pain Category: Medical (2) Bilateral hip pain: Code(s): M25.551 - Pain in right hip; M25.552 - Pain in left hip Category: Medical (3) Other cervical disc degeneration, unspecified cervical region: Code(s): M50.30 - Other cervical disc degeneration, unspecified cervical region Category: Medical (4) Sacroiliac joint pain: Code(s): M53.3 - Sacrococcygeal disorders, not elsewhere classified Category: Medical Plan Plan - Order x-rays for the neck and lower back to assess current condition - Patient to obtain previous MRIs from [facility] for review - Initiate physical therapy for cervical disc degeneration and sacroiliac joint pain - Follow-up appointment scheduled in three weeks to review imaging results and assess progress Patient was informed and verbally consented to the use of an ambient scribe for clinic note documentation during this visit. Discussion Notes I discussed with the patient the importance of obtaining previous MRI results for a comprehensive review of her condition. We talked about initiating physical therapy to address cervical disc degeneration and sacroiliac joint pain. I also explained the plan to order new x-rays for her neck and lower back to better understand her current condition. A follow-up appointment was scheduled in three weeks to review the imaging results and assess her progress. Patient Instructions - Obtain previous MRI results from [facility] and bring them to the next appointment. - Attend physical therapy sessions as prescribed to help manage pain. - Complete x-rays for neck and lower back as ordered by the doctor. - Return for a follow-up appointment in three weeks to review results and discuss further management. Orders: Orders XR lumbar spine 2-3V 11/20/24 G89.29 - Other chronic pain, M54.9 - Dorsalgia, unspecified XR hip BI w PEL1V 11/20/24 M25.551 - Pain in right hip, M25.552 - Pain in left hip PT Evaluation and Treatment 11/20/24 M50.30 - Other cervical disc degeneration, unspecified cervical region, M53.3 - Sacrococcygeal disorders, not elsewhere classified Medications: Discontinued amitriptyline Discontinued Reason: Patient Completed Course 25 mg PO BEDTIME 20 tabs 0RF tramadol Discontinued Reason: Patient Completed Course 50 mg PO Q6H PRN 20 tabs 0RF pain Coding Level of Care Code New Pt Level 4 (88216) Diagnoses Chronic back pain M54.9; G89.29 Bilateral hip pain M25.551; M25.552 Other cervical disc degeneration, unspecified cervical region M50.30 Sacroiliac joint pain M53.3
--- OUTSIDE RECORDS SUMMARY | 2024-11-20 10:50 | XMS_ITS | Clinical Summary ---
Author Organization [facility] Address [address] [place] [address] Phone Care Team Providers Care Bit Gatherer Name Role Phone Physician, Pcp Unknown Primary Care Provider Kath vailable Allergies Active Allergy Reactions Criticality Noted Date Comments Prednisone Anxiety 10/19/2024 Encounters Date Type Department Care Team Description 10/19/2024 9:35 AM EDT - 10/19/2024 11:48 AM EDT Emergency [facility] Emergency [address] [place] [address] Injury of left knee, initial encounter (Primary Dx) Discharge Disposition: Home or Self Care from Last 3 Months Surgical History Surgery Date Site/Laterality Comments SECTION [...] Sexual Orientation Not on file Obstetrics History Last Filed Vital Signs Vital Sign Reading Time Taken Comments Blood Pressure 129/73 10/19/2024 9:25 AM EDT Pulse 76 10/19/2024 9:25 AM EDT Temperature 36.3 C (97.3 F) 10/19/2024 9:25 AM EDT Respiratory Rate 16 10/19/2024 9:25 AM EDT Oxygen Saturation 98% 10/19/2024 9:25 AM EDT Inhaled Oxygen Concentration - - Weight - - Height - - Body Mass Index - - Plan of Treatment Health Maintenance Due Date Last Done Comments Hepatitis B Vaccines (1 of 3 - 19+ 3-dose series) 1991 Pneumococcal Vaccine: 50+ Years (2 of 2 - PCV) 04/10/2015 04/10/2014 Cervical Cancer Screening: Pap Smear 09/30/2020 09/30/2017 Colorectal Cancer Screening: Colonoscopy 04/05/2022 Hepatitis C Screening 04/05/2022 Social Influencers of Health Screening 04/05/2022 COVID-19 Vaccine ( season) 2024 04/02/2022, 04/22/2021, 08/12/2020, Additional history exists DTaP,Tdap,and Td Vaccines (3 - Td or Tdap) 04/10/2024 04/10/2014, 09/01/2005 Depression Screening 05/03/2024 Influenza Vaccine (#1) 2025 4, 02/20/2013, 01/18/2012, Additional history exists Breast Cancer Screening 09/09/2025 09/10/19 24, 07/06/2018, 06/28/2017 Cholesterol Screening (Lipid Panel) 09/12/2029 09/12/2024 Zoster Vaccines Completed 08/24/2022, 06/18/2022 HIV Screening Completed 09/12/2024 HIB Vaccines Aged Out No longer eligi [...] Procedure Name Priority Date/Time Associated Diagnosis Comments XR TIBIA FIBULA 2 VIEWS LEFT STAT 10/19/2024 10:03 AM EDT XR KNEE 3 VIEWS LEFT STAT 10/19/2024 10:03 AM EDT DOMINICK SCREENING DIGITAL Routine 09/10/2023 8:28 AM EDT Encounter for screening mammogram for malignant neoplasm of breast PAP SMEAR Routine 09/30/2017 from Last 3 Months or Most Recently Relevant to Health Maintenance Results * XR Tibia Fibula 2 Views Left (10/19/2024 10:03 AM EDT) Anatomical Region Laterality Modality Lower Extremities, Lower Leg Left Rad iographic Imaging 10/19/2024 10:2 0 AM EDT Impressions 10/19/2024 10:20 AM EDT FINDINGS/IMPRESSION: No acute fracture or dislocation. Joint spaces are preserved. No focal soft tissue swelling or knee effusion. -------- FINAL REPORT -------- Dictated By: DENNIS CORDERO Dictated Date: 10/19/2024 10:20 ET Assigned Physician: DENNIS CORDERO Reviewed and Electronically Signed By: DENNIS CORDERO Signed Date: 10/19/2024 10:20 ET Workstation ID: [id number] Transcribed By: Self Edit Transcribed Date: 10/19/2024 10:20 ET Narrative 10/19/2024 10:20 AM EDT XR TIBIA FIBULA 2 VIEWS LEFT INDICATION: Pain TECHNIQUE: XR TIBIA FIBULA 2 VIEWS LEFT COMPARISON: No priors available. Procedure Note Dennis Cordero MD - 10/19/2024 XR TIBIA FIBULA 2 VIEWS LEFT INDICATION: Pain TECHNIQUE: XR TIBIA FIBULA 2 VIEWS LEFT COMPARISON: No priors available. IMPRESSION: FINDINGS/IMPRESSION: No acute fracture or dislocation. Joint spaces arepreserved. No focal soft tissue swelling or knee effusion. -------- FINAL REPORT -------- Dictated By: DENNIS CORDERO Dictated Date: 10/19/2024 10:20 ET Assigned Physician: DENNIS CORDERO Reviewed and Electronically Signed By: DENNIS CORDERO Signed Date: 10/19/2024 10:20 ET Workstation ID: [id number] Transcribed By: Self Edit Transcribed Date: 10/19/2024 10:20 ET Sari MCNAMARA IMG XR PROCEDURES Final Result * XR Knee 3 Views Left (10/19/2024 10:03 AM EDT) Anatomical Region Laterality Modality Lower Extremities, Knee [facility] 10/19/2024 10:2 7 AM EDT Impressions 10/19/2024 10:34 AM EDT FINDINGS/IMPRESSION: No acute fracture or dislocation. Joint spaces are preserved. No joint effusion or focal soft tissue swelling. -------- FINAL REPORT -------- Dictated By: DENNIS CORDERO Dictated Date: 10/19/2024 10:27 ET Assigned Physician: DENNIS CORDERO Reviewed and Electronically Signed By: DENNIS CORDERO Signed Date: 10/19/2024 10:34 ET Workstation ID: [id number] Transcribed By: Self Edit Transcribed Date: 10/19/2024 10:27 ET Narrative 10/19/2024 10:34 AM EDT XR KNEE 3 VIEWS LEFT INDICATION: Pain TECHNIQUE: XR KNEE 3 VIEWS LEFT COMPARISON: No priors available. Procedure Note Dennis Cordero MD - 10/19/2024 XR KNEE 3 VIEWS LEFT INDICATION: Pain TECHNIQUE: XR KNEE 3 VIEWS LEFT COMPARISON: No priors available. IMPRESSION: FINDINGS/IMPRESSION: No acute fracture or dislocation. Joint spaces arepreserved. No joint effusion or focal soft tissue swelling. -------- FINAL REPORT -------- Dictated By: DENNIS CORDERO Dictated Date: 10/19/2024 10:27 ET Assigned Physician: DENNIS CORDERO Reviewed and Electronically Signed By: DENNIS CORDERO Signed Date: 10/19/2024 10:34 ET Workstation ID: [id number] Transcribed By: Self Edit Transcribed Date: 10/19/2024 10:27 ET us Sari MCNAMARA IMG XR PROCEDURES Final Result * DOMINICK SCREENING DIGITAL (09/10/2023 8:28 AM EDT) Anatomical Region Laterality Modality Mammography 09/08/2023 9:04 AM EDT Narrative 09/10/2023 8:[address] [facility] Diagnostic Imaging Department [address] [place] [address] Patient: MILES STANLEY /Age/Sex: 1970 - 53 - F Unit#: [id number] [facility]Ordering Site: [facility] Ordering Physician: SHARRI NUÑEZ MD [facility] Screening Digital - 09/08/23 - 39 Report Status:Signed EXAM: [facility] Screening Digital EXAM DATE AND TIME: 09/08/2023 9:39 AM HISTORY: Annual screening COMPARISON: Multiple exams dating back to 2016 TECHNIQUE: Bilateral digital breast tomosynthesis was performed in the CC and MLO projections. Computer aided detection with Exploretrip 3D 3.1 was employed. TISSUE DENSITY: b. There are scattered areas of fibroglandular density. FINDINGS: Possible developing asymmetry in the upper-outer quadrant of the left breast seen on the MLO view. No associated calcification or architectural distortion. The right breast is unremarkable. IMPRESSION: Possible developing asymmetry in the upper-outer quadrant of the left breast seen on the MLO view. Recommend diagnostic mammogram of the left breast with spot compression MLO tomographic imaging. BI-RADS: Category 0: Incomplete - Need Additional Imaging Evaluation Dictating Physician: PORTER LACY MD Electronically Signed by: PORTER LACY MD Dic Date/Time: 09/10/23825 Sign date/Time: 09/10/23827 Procedure Note Porter Lacy MD - 12/20/2023 [facility] Diagnostic Imaging Department [address] [place] [id number] Patient: MILES STANLEY./Age/Sex: 1970 - 53 - F Unit#: [id number] [facility] Mn[facility]onic/Ordering Site: [facility] Ordering Physician: SHARRI NUÑEZ MD [facility] Screening Digital - 09/08/23 - 0939 Report Status:Signed EXAM: [facility] Screening Digital EXAM DATE AND TIME: 09/08/2023 9:39 AM HISTORY: Annual screening COMPARISON: Multiple exams dating back to 2016 TECHNIQUE: Bilateral digital breast tomosynthesis was performed in the CCand MLO projections. Computer aided detection with Exploretrip 3D 3.1was employed. TISSUE DENSITY: b. There [...] RESULTING AGENCY - 10/04/2017 2:37 PM EDT [id number] THINPREP PAP, IMAGED: NEGATIVE FOR SQUAMOUS INTRAEPITHELIAL LESION AND MALIGNANCY . RESULT OF APTIMA HIGH RISK HPV ASSAY: NEGATIVE (SEROTYPES 16,18,31,33,35,39,45,51,52,56,58,59,66,68) JENNY VILLAR(ASCP) (CASE ELECTRONICALLY SIGNED 10 04 2017) ADEQUACY: SATISFACTORY. ENDOCERVICAL/TRANSFORMATION ZONE COMPONENT PRESENT. SOURCE: THINPREP PAP HPV ANY DX: REFLEX 16 AND 18, CERVICAL, IMAGED: CLINICAL INFORMATION: HPV ANY DIAGNOSIS. Z12.4, PAP HX: NEGATIVE us Karyna Todd MD LAB CYTOLOGY ORDERABLES Final Result HISTORICAL TESTING LAB RESULTING AGENCY from Last 3 Months or Most Recently Relevant to Health Maintenance Insurance MEDICAID - [place] Care Teams Bit Gatherer Relationship Specialty Start Date End Date Physician, Pcp Unknown PCP - General 10/19/24
--- OUTSIDE RECORDS SUMMARY | 2024-11-20 10:50 | XMS_ITS | Encounter Summary ---
Author Organization [employer] Address [address] [place] [address] Care Team Providers Care Frankfurter Inspector Name Role Phone Sharri Nuñez MD Primary Care Provider [phone] Encounter Details Date Type Department Care Team ([facility] st Contact Info) Description 09/20/2024 Telephone [facility] [address] [place], [place] [phone] Miranda Anaya MD [address] [place] [address] Social History Tobacco Use Types Packs/Day Years [...] documented as of this encounter Care Teams Frankfurter Inspector Relationship Specialty Start Date End Date Sharri Nuñez MD [address] [place] [id number] PCP - General Family Medicine 01/01/21 documented as of this encounter
== END 2024-11-20 11:36 | disposition home or self-care (01) ==
LOC: HO.PMC 10:02
PROVIDERS: PCP Family Medicine; Referring Provider Family Medicine; Visit Provider Internal Medicine
DX: M54.9 Dorsalgia, unspecified (principal); G89.29 Other chronic pain; M25.551 Pain in right hip; M25.552 Pain in left hip; M50.30 Other cervical disc degeneration, unspecified cervical region; M53.3 Sacrococcygeal disorders, not elsewhere classified
CPT/HCPCS: 99204

== ENCOUNTER 2024-11-20 10:02 | Outpatient (REF) | payer MEDICAID, SELFPAY ==
--- NOTE | ~2024-11-20 | XR_ITS ---
CLINICAL HISTORY: M25.551 - Pain in right hip Radiographs of the pelvis and bilateral hips, 5 views Comparison: None available Findings: No fracture or dislocation. No degenerative change in the pelvis. Wugp-ky-shtstgkc lower lumbar degenerative change. Bone mineralization is normal. No soft tissue swelling. Impression: No acute findings. No degenerative change of the hips. This document has been electronically signed by: Susannah Stewart MD on 11/21/2024 22:09:12
--- NOTE | ~2024-11-20 | XR_ITS ---
CLINICAL HISTORY: M54.9 - Dorsalgia, unspecified Radiographs of the lumbar spine, 3 views Comparison: None available Findings: Mild multilevel retrolisthesis, degenerative. Trace levocurvature with the apex at L3. No fracture. The vertebral body heights are preserved. There is fows-qx-jgfrdhlo multilevel intervertebral disc space narrowing with mild endplate osteophytosis. Moderate mid to lower lumbar facet hypertrophy. The soft tissues are normal. Impression: No acute findings. Adma-lu-tgublyqs degenerative change. This document has been electronically signed by: Susannah Stewart MD on 11/21/2024 22:09:09
== END 2024-11-20 10:03 | disposition home or self-care (01) ==
LOC: HO.XRAY 10:02
PROVIDERS: PCP Family Medicine; Referring Provider Family Medicine; Visit Provider Internal Medicine
DX: M54.9 Dorsalgia, unspecified (principal); G89.29 Other chronic pain; M25.551 Pain in right hip; M25.552 Pain in left hip; M53.3 Sacrococcygeal disorders, not elsewhere classified; M50.30 Other cervical disc degeneration, unspecified cervical region
CPT/HCPCS: 72100; 73521; 99202

== ENCOUNTER → 2024-11-20 11:44 | Outpatient (BNV) | payer MEDICAID, SELFPAY | PROVIDERS: PCP Family Medicine; Referring Provider Family Medicine; Visit Provider Radiology Diagnostic Radiology | DX: M43.16 Spondylolisthesis, lumbar region (principal) | CPT/HCPCS: 72100; 73521 ==

== ENCOUNTER 2024-12-11 09:48 | Outpatient (AMB) | payer MEDICAID, SELFPAY ==
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
[2024-12-11 09:53] VITALS: BP 136/66; PULSE 77; RESP 16; O2SAT 98; BMI 26.8
--- OUTSIDE RECORDS SUMMARY | 2024-12-11 10:19 | XMS_ITS | Clinical Summary ---
Author Organization [facility] Address [address] [place] [address] Phone Care Team Providers Care Wireless Internet Installer Name Role Phone Physician, Pcp Unknown Primary Care Provider Kath vailable Allergies Active Allergy Reactions Criticality Noted Date Comments Prednisone Anxiety 10/19/2024 Encounters Date Type Department Care Team Description 10/19/2024 9:35 AM EDT - 10/19/2024 11:48 AM EDT Emergency [facility] Emergency [address] [place] [address] Injury of left knee, initial [...] Signed Date: 10/19/2024 10:20 ET Workstation ID: [id number] Transcribed By: Self Edit Transcribed Date: 10/19/2024 [...] Signed Date: 10/19/2024 10:20 ET Workstation ID: [id number] Transcribed By: Self Edit Transcribed Date: 10/19/2024 10:20 ET Sari MCNAMARA IMG XR PROCEDURES Final Result * XR Knee 3 Views Left (10/19/2024 10:03 AM EDT) Anatomical Region Laterality Modality Lower Extremities, Knee Left [facility] 10/19/2024 10:2 7 AM EDT Impressions 10/19/2024 10:34 AM EDT FINDINGS/IMPRESSION: No acute fracture or dislocation. Joint spaces are preserved. No joint effusion or focal soft tissue swelling. -------- FINAL REPORT -------- Dictated By: DENNIS CORDERO Dictated Date: 10/19/2024 10:27 ET Assigned Physician: DENNIS CORDERO Reviewed and Electronically Signed By: DENNIS CORDERO Signed Date: 10/19/2024 10:34 ET Workstation ID: [id number] Transcribed By: Self Edit Transcribed Date: 10/19/2024 [...] Signed Date: 10/19/2024 10:34 ET Workstation ID: [id number] Transcribed By: Self Edit Transcribed Date: 10/19/2024 10:27 ET us Sari MCNAMARA IMG XR PROCEDURES Final Result * DOMINICK SCREENING DIGITAL (09/10/2023 8:28 AM EDT) Anatomical Region Laterality Modality Mammography 09/08/2023 9:04 AM EDT Narrative 09/10/2023 8:28 AM EDT [facility] Diagnostic Imaging Department [address] [place] [address] Patient: MILES STANLEY /Age/Sex: 1970 - 53 - F Unit#: [id number] [facility] Mnemonic/Ordering Site: [facility] Ordering Physician: SHARRI NUÑEZ MD [facility] Screening Digital - 09/08/23 - 39 Report Status:Signed EXAM: [facility] Screening Digital EXAM DATE AND TIME: 09/08/2023 9:39 AM HISTORY: Annual screening COMPARISON: Multiple exams dating back to 2016 TECHNIQUE: Bilateral digital breast tomosynthesis was performed in the CC and MLO projections. Computer aided detection with EATON 3D 3.1 was employed. TISSUE DENSITY: b. [...] Procedure Note Porter Lacy MD - 12/20/2023 [facility] Diagnostic Imaging Department [address] [place] [id number] Patient: MILES STANLEY./Age/Sex: 1970 - 53 - F Unit#: [id number] [facility] Mnemonic/Ordering Site: [facility] Ordering Physician: SHARRI NUÑEZ MD [facility] Screening Digital - 09/08/23 - 0939 Report Status:Signed EXAM: [facility] Screening Digital EXAM DATE AND TIME: 09/08/2023 9:39 AM HISTORY: Annual screening COMPARISON: Multiple exams dating back to 2016 TECHNIQUE: Bilateral digital breast tomosynthesis was performed in the CCand MLO projections. Computer aided detection with EATON 3D 3.1was employed. TISSUE DENSITY: b. There [...] RESULTING AGENCY - 10/04/2017 2:37 PM EDT [id number] THINPREP PAP, IMAGED: NEGATIVE FOR SQUAMOUS INTRAEPITHELIAL [...] Maintenance Insurance MEDICAID - [place] Care Teams Wireless Internet Installer Relationship Specialty Start Date End Date Physician, Pcp Unknown PCP - General 10/19/24
--- OUTSIDE RECORDS SUMMARY | 2024-12-11 10:19 | XMS_ITS | Encounter Summary ---
Author Organization [employer] Address [address] [facility] 7 [place] [address] Care Team Providers Care Surgical Coder Name Role Phone Sharri Nuñez MD Primary Care Provider [phone] Reason for Visit * Reason Onset Date Comments Nurse Triage 11/20/2024 Encounter Details Date Type Department Care Team ([facility] Contact Info) Description 11/20/2024 Telephone [facility] CHC MED & PEDS [address] [place] [address] Sharri Nuñez MD [address] [place] [address] Nurse Triage Social History Tobacco Use Types Packs/Day Years [...] your housing situation today? I have maximiliano maria e 09/11/[address] you li [...] encounter Miscellaneous Notes * Telephone Encounter - Hetaher Amaya RN - 11/20/2024 12:46 PM EDT Triage call Pt is not at home, Pt doesn't have BP measurements they are at home. Pt is requesting acall back in an hour. Pt is advised that Triage nurse will call Pt back at 145pm - 200pm. Pt agrees. Triage call Pt reports had gone to pain management apt today and was told that BP was high. Pt has been given BP machine to monitor BP and was supposed to go to follow up apt 11/10/24. Pt didn't go toapt and is calling for follow up apt for BP. Pt BP today was 137/77 p66 while on this call. Pt reports some slight headache and light headedness at times as well as having some anxiety. ASK apt with Dr. Rice in [facility] 11/23/24 @ 1130am. Pt agrees with disposition . Home care reviewed as well as lifestyle changes which might help. Insurance is verified as active prior to booking. Protocol Used: Blood Pressure - High (Adult) Care Advice Discussed: * Reassurance and Education - BP Under 130 / 80 and Taking BP Meds * Reassurance and Education - BP 120-129 / 80 * Reassurance and Education - BP under 120 / 80 * High Blood Pressure * High Blood Pressure - Lifestyle Changes * Reasons To Call Back - Headache, blurred vision, difficulty talking, or difficulty walking occurs - Chest pain or difficulty breathing occurs - You want to go into the office for a blood pressure check - You become worse * Telephone Encounter - Pedro Morales - 11/20/2024 12:24 PM EDT Symptom: High Blood Pressure - Caller Reports Outcome: Schedule a same-day appointment or talk to a nurse or provider today Reason: Caller denied all higher acuity questions The caller accepted this outcome. Contact pt at [phone] documented in this encounter Plan of Treatment Upcoming Encounters Date Type Department Care Team (Late st Contact Info) Description 12/22/2024 9:45 AM EDT Clinical Support [facility] MED & PEDS [address] [place] [address] documented as of this encounter Visit Diagnoses Not on filedocumented in this encounter Additional Health Concerns Assessment Noted Time PHQ-9 Depression Total Score: 13 025 2:12 PM EDT documented as of this encounter Care Teams Surgical Coder Relationship Specialty Start Date End Date Sharri Nuñez MD [address] [place] [address] PCP - General Family Medicine 01/01/21 documented as of this encounter
== END 2024-12-11 10:27 | disposition home or self-care (01) ==
LOC: HO.PMC 09:49
PROVIDERS: PCP Family Medicine; Visit Provider Internal Medicine
DX: M54.9 Dorsalgia, unspecified (principal); G89.29 Other chronic pain
CPT/HCPCS: 99213

== ENCOUNTER → 2024-12-11 09:48 | Outpatient (BNVA) | payer MEDICAID, SELFPAY | PROVIDERS: PCP Family Medicine; Visit Provider Internal Medicine | DX: Z71.2 Person consulting for explanation of examination or test findings (principal); M54.9 Dorsalgia, unspecified; G89.29 Other chronic pain | CPT/HCPCS: 99212 ==

== ENCOUNTER 2025-02-14 07:59 | Outpatient (REF) | payer MEDICAID, SELFPAY ==
--- NOTE | ~2025-02-14 | XR_ITS ---
EXAMINATION: XR KNEE, LEFT CLINICAL INFORMATION: M25.562 - Pain in left knee COMPARISON: None available. TECHNIQUE: Three views of the left knee. FINDINGS: No fracture or joint effusion. Alignment is anatomic. Joint spaces are maintained. There is subtle chondrocalcinosis in the medial and lateral compartments. Normal patellar alignment. No soft tissue abnormality. XR/XR knee LT 3V IMPRESSION: 1. Subtle chondrocalcinosis in the medial and lateral compartments. Findings suggest CPPD. 2. Otherwise normal left knee. No joint effusion. Electronically signed by: Sarwat Tanner MD 02/14/2025 08:42 AM EDT
--- OUTSIDE RECORDS SUMMARY | 2025-02-15 08:03 | XMS_ITS | Encounter Summary ---
Author Organization [employer] Address [address] [facility] 7 [place] [address] Care Team Providers Care Cut Lace Machine Operator Name Role Phone Sharri Nuñez MD Primary Care Provider [phone] Reason for Visit * Reason Onset Date Comments Appointment Request 09/14/2023 Encounter Details Date Type Department Care Team ([facility] st Contact Info) Description 09/14/2023 Telephone [facility] MEDICINE [address] [place] [address] Sharri Nuñez MD [address] [place] [address] Appointment Request Social History Tobacco Use Types [...] Description 03/14/2025 2:15 PM EST Office Visit [facility] CH[facility] MED & PEDS [address] [place] [address] Sharri Nuñez MD [address] [place] [address] documented as of this encounter Visit Diagnoses Not on filedocumented in this encounter Additional Health Concerns Assessment Noted Time PHQ-9 Depression Total Score: 8 08/19/19 24 10:22 AM EDT documented as of this encounter Care Teams Cut Lace Machine Operator Relationship Specialty Start Date End Date Sharri Nuñez MD [address] [place] [address] PCP - General Family Medicine 01/01/21 documented as of this encounter
--- OUTSIDE RECORDS SUMMARY | 2025-02-15 08:03 | XMS_ITS | Encounter Summary ---
Author Organization [employer] Address [address] [facility] 7 [place] [address] Care Team Providers Care Scientist Immunology Name Role Phone Sharri Nuñez MD Primary Care Provider [phone] Reason for Visit * Reason Onset Date Comments Appointment Request 08/18/2024 Encounter Details Date Type Department Care Team ([facility] st Contact Info) Description 08/18/2024 Telephone [facility] MEDICINE [address] [place] [address] Sharri Nuñez MD [address] [place] [address] Appointment Request Social History Tobacco Use Types [...] Description 03/14/2025 2:15 PM EST Office Visit [facility] MED & PEDS [address] [place] [address] Sharri Nuñez MD [address] [place] [address] documented as of this encounter Visit Diagnoses Not on filedocumented in this encounter Additional Health Concerns Assessment Noted Time PHQ-9 Depression Total Score: 8 08/19/19 24 10:22 AM EDT documented as of this encounter Care Teams Scientist Immunology Relationship Specialty Start Date End Date Sharri Nuñez MD [address] [place] [address] PCP - General Family Medicine 01/01/21 documented as of this encounter
--- OUTSIDE RECORDS SUMMARY | 2025-02-15 08:03 | XMS_ITS | Clinical Summary ---
Author Organization [employer] Address [address] [place] [address] Care Team Providers Care It Application Administrator Name Role Phone Sharri Nuñez MD Primary Care Provider [phone] Allergies Active Allergy Reactions Criticality Noted Date Comments Prednisone Anxiety Low 10/19/2024 Medications albuterol (2.5 MG/3ML) 0.083% nebulizer solution Inhale 3 mL every 6 (six) hours. 11/14/19 22 Active ergocalciferol (Vitamin D-2) 1.25 MG (03608 UT) capsule Take 1 capsule once a [...] & Plan (04/21/2022 4:45 PM EST): Reviewed [facility] ED notes, R sided hydronephrosis, with [...] Description 02/01/2025 1:40 PM EDT Office Visit [facility]S [address] [place] [address] Radha Clark MD URI, acute (Primary Dx); Sacroiliac joint dysfunction of left side; Lumbar back pain with radiculopathy affecting left lower extremity 02/01/2025 Travel 02/01/[address] [address] Sharri Nuñez MD Nurse Triage 01/26/2025 9:45 AM EDT Clinical Support [facility] [address] [place] [address] Shivani Linares RN Elevated blood pressure reading 01/26/2025 Travel 01/22/[address] [address] Sharri Nuñez MD 01/19/2025 Telephone [facility] [address] [place] [address] Sharri Nuñez MD sick visit 12/22/2024 9:45 AM EDT Clinical Support [facility] [address] [place] [address] Shivani Linares, OCTAVIA Elevated blood pressure reading 12/22/2024 Travel 11/23/2024 11:30 AM EDT Office Visit [facility] [address] [place] [address] Anju Rice MD Elevated blood pressure reading (Primary Dx) 11/23/2024 Travel 11/20/2024 Orders Only [facility] External Provider, [facility] 11/20/2024 Telephone [facility] [address] [place] [address] Sharri Nuñez MD Referral 11/20/2024 Telephone [facility] [address] [place] [address] Sharri Nuñez MD Nurse Triage from Last 3 Months Immunizations Immunization Administration Dates Next Due Influenza, IIV3, injectable 04/10/2014,1 ,01/18/2012,02/13,05/28/2009,05/20/2006 Novel [id number]-[id number], preservative-free 05/28/2009 Pneumococcal Polysaccharide PPSV23 04/10/2014 TD [...] the past 12 months, has t he [employer], oil or water [employer] threatened to shut off services in your [...] Description 03/14/2025 2:15 PM EST Office Visit [facility] MED & PEDS [address] [place] [address] Sharri Nuñez MD [address] [place] [address] Health Maintenance Due Date Last Done Comments [...] Influenza B OSOM (02/01/2025 2:07 PM EDT) [facility] Rapid Influenza B Ag Negative Negative, Indeterminate Swab 02/01/2025 2:07 PM EDT us Radha Clark MD POINT OF CARE TEST ENTER/EDIT ORDERABLES Final Result * POCT Rapid Strep A OSOM (02/01/2025 2:07 PM EDT) [facility] Rapid Strep A Screen Negative Negative, None Detected Swab 02/01/2025 2:07 PM EDT us Radha Clark MD POINT OF CARE TEST ENTER/EDIT ORDERABLES Final Result * POCT Rapid Influenza A OSOM (02/01/2025 2:06 PM EDT) [facility] Rapid Influenza A Ag Negative Negative, Indeterminate Swab Nasopharyngeal structure / Unknown 02/01/2025 2:06 PM EDT us Radha Clark MD POINT OF CARE TEST ENTER/EDIT ORDERABLES Final Result * XR Hips Bilateral with Pelvis 1 view (11/21/2024 10:09 PM EDT) Anatomical Region Laterality Modality Lower Extremities, Hip Bilateral Radiograp hic Imaging 11/21/2024 10:0 9 PM EDT Narrative 11/21/2024 10:11 PM EDT [address] [address] XRay Report Signed Patient: Jessica Stanley MR#: [id number] : 1970 Acct:[id number] Age/Sex: 54 / F ADM Date: 11/20/24 Loc: LEXY Attending Dr: Josesito Hutchison MD Ordering Physician: Josesito Hutchison MD Date of Service: 11/20/24 Procedure(s): XR hip BI w PEL1V Accession Number(s): [id number] cc: Josesito Hutchison MD; Sharri Nuñez MD CLINICAL HISTORY: M25.551 - Pain in right hip Radiographs of the pelvis and bilateral hips, 5 views Comparison: None available Findings: No fracture or dislocation. No degenerative change in the pelvis. Eliy-ej-bmcboreq lower lumbar degenerative change. Bone mineralization is normal. No soft tissue swelling. Impression: No acute findings. No degenerative change of the hips. This document has been electronically signed by: Susannah Stewart MD on 11/21/2024 22:09:12 Dictated By: Susannah Kirk MD Signed By: <Electronically signed by Susannah Kirk MD in OV> 11/21/242209 DD/ 08 TD/TT: 11/21/242208 Dance Critic: Procedure Note Donotuseinterpreter, Image - 11/21/2024 [place] [address] XRay Report Signed Patient: Josselyn Stanley#: [id number] : 1970Acct:[id number] Age/Sex: 54 / FADM Date: 11/20/24 Loc: HO.CECELIA Attending Dr: Josesito Hutchison MD Ordering Physician: Josesito Hutchison MD Date of Service: 11/20/24 Procedure(s): XR hip BI w PEL1V Accession Number(s): [id number] cc: Josesito Hutchison MD; Sharri Nuñez MD CLINICAL HISTORY: M25.551 - Pain in right hip Radiographs of the pelvis and bilateral hips, 5 views Comparison: None available Findings: No fracture or dislocation. No degenerative change in the pelvis. Ujos-wd-blpoluhy lower lumbar degenerative change. Bone mineralization is normal. No soft tissue swelling. Impression: No acute findings. No degenerative change of the hips. This document has been electronically signed by: Susannah Stewart MD on 11/21/2024 22:09:12 Dictated By: Susannah Kirk MD Signed By: <Electronically signed by Susannah Kirk MD in OV> 11/21/242209 DD/ 08 TD/TT: 11/21/242208 Dance Critic: us [facility] External Provider IMG XR PROCEDURES Final Result * XR Lumbar Spine 2-3 Views (11/21/2024 10:09 PM EDT) Anatomical Region Laterality Modality Spine, L-spine Radiographic Veda ging 11/21/2024 10:0 9 PM EDT Narrative 11/21/2024 10:11 PM EDT [address] [address] XRay Report Signed Patient: Jessica Stanley MR#: [id number] : 1970 Acct:[id number] Age/Sex: 54 / F ADM Date: 11/20/24 Loc: HO.XRAY Attending Dr: Josesito Hutchison MD Ordering Physician: Josesito Hutchison MD Date of Service: 11/20/24 Procedure(s): XR lumbar spine 2-3V Accession Number(s): [id number] cc: Josesito Hutchison MD; Sharri Nuñez MD CLINICAL HISTORY: M54.9 - Dorsalgia, unspecified Radiographs of the lumbar spine, 3 views Comparison: None available Findings: Mild multilevel retrolisthesis, degenerative. Trace levocurvature with the apex at L3. No fracture. The vertebral body heights are preserved. There is effj-on-qmacurtk multilevel intervertebral disc space narrowing with mild endplate osteophytosis. Moderate mid to lower lumbar facet hypertrophy. The soft tissues are normal. Impression: No acute findings. Juut-dk-cpsmrovq degenerative change. This document has been electronically signed by: Susannah Stewart MD on 11/21/2024 22:09:09 Dictated By: Susannah Kirk MD Signed By: <Electronically signed by Susannah Kirk MD in OV> 11/21/242209 DD/ 08 TD/TT: 11/21/242208 Dance Critic: Procedure Note Donotuseinterpreter, Image - 11/21/2024 [place] [address] [place] [address] XRay Report Signed Patient: Josselyn Stanley#: [id number] : 1970Acct:[id number] Age/Sex: 54 / FADM Date: 11/20/24 Loc: HO.XRAY Attending Dr: Josesito Hutchison MD Ordering Physician: Josesito Hutchison MD Date of Service: 11/20/24 Procedure(s): XR lumbar spine 2-3V Accession Number(s): [id number] cc: Josesito Hutchison MD; Sharri Nuñez MD CLINICAL HISTORY: M54.9 - Dorsalgia, unspecified Radiographs of the lumbar spine, 3 views Comparison: None available Findings: Mild multilevel retrolisthesis, degenerative. Trace levocurvature with the apex at L3. No fracture. The vertebral body heights are preserved. There is mxez-om-ogbqirvk multilevel intervertebral disc space narrowing with mild endplate osteophytosis. Moderate mid to lower lumbar facet hypertrophy. The soft tissues are normal. Impression: No acute findings. Tmzv-co-zzpkwwmm degenerative change. This document has been electronically signed by: Susannah Stewart MD on 11/21/2024 22:09:09 Dictated By: Susannah Kirk MD Signed By: <Electronically signed by Susannah Kirk MD in OV> 11/21/242209 DD/ 08 TD/TT: 11/21/242208 Dance Critic: [facility] External Provider IMG XR PROCEDURES Final Result * Hepatitis A,B,C Profile (09/12/2024 9:57 AM EDT) Hepatitis A IgM Nonreactive Nonreactive [facility] Comment:IgM antibodies to OLIVERA V not detected; does not exclude earlyacute or recovered HAV infection. ~Hepatitis B Surface Antibody REACTIVE Nonreactive [facility] Comment:REACTIVE: > 11.99 mI U/mL Hepatitis B Core Antibody Nonreactive Nonreactive [facility] Hepatitis C Antibody Nonreactive Nonreactive [facility] Comment:Antibodies to HCV no t detected; does not exclude early acuteHCV infection. Hepatitis B Surface Ag Negative Negative [facility] Blood Venous blood specimen / Unknown 09/12/2024 9:57 AM EDT 09/12/2024 2:07 PM EDT us Sharri Nuñez MD LAB BLOOD ORDERABLES Final Re sult [facility] [address] [place] [address] [phone] * HIV-1/2 Antigen and Antibodies, Fourth Generation, with Reflexes (09/12/2024 9:57 AM EDT) Pathologist [facility] HIV AB/AG Nonreactive Nonreactive [facility] Comment:HIV-1 p24 Ag and/or HIV-1/HIV-2 Ab not detected.A test result that is nonreactive does not exclude thepossibility of exposure to or infection with HIV-1 and/orHIV-2. Nonreactive results in this assay for individualswith prior exposure to HIV-1 and/or HIV-2 may be due toantigen and antibody levels that are below the limit ofdetection of this assay.The [employer] HIV Ag/Ab Combo assay result andsupplemental assay results should be interpreted inconjunction with the patient's clinical presentation,history and other laboratory results. If the results areinconsistent with clinical evidence, additional testing issuggested to confirm the result. Blood Venous blood specimen / Unknown 09/12/2024 9:57 AM EDT 09/12/2024 2:07 PM EDT us Sharri Nuñez MD LAB BLOOD ORDERABLES Final Re sult [facility] [address] [place] [address] [phone] * Mammography (09/14/2023) HM Mammogram BIRADS 1 Normal, Abnormal, BIRADS 1 , BIRADS 2 Anatomical Region Laterality Modality Other Narrative 09/14/2023 09/08/23 Mammo with Upper outer quadrant Left breast asymmetry had compression test (09/14/23) and it was normal. Records scanned in EMR from [facility] us Sharri Nuñez MD HEALTH MAINTENANCE Final Resu lt * Cologuard?? colon cancer screening (07/22/2022) Pathologist [facility] Cologuard Cancer Screen Negative Stool 07/22/2022 us Sharri Nuñez MD LAB MOLECULAR DIAGNOSTICS ORD ERABLES Final Result from Last 3 Months or Most Recently Relevant to Health Maintenance Insurance C3 Care Teams It Application Administrator Relationship Specialty Start Date End Date Sharri Nuñez MD [address] [place] [address] PCP - General Family Medicine 01/01/21
--- OUTSIDE RECORDS SUMMARY | 2025-02-15 08:03 | XMS_ITS | Clinical Summary ---
Author Organization [facility] Address [address] [place] [address] Phone Care Team Providers Care Boarding House Manager Name Role Phone Physician, Pcp Unknown Primary [...] AM EDT Narrative 09/10/2023 8:28 AM EDT [facility] Diagnostic Imaging Department [address] [place] [address] Patient: MILES STANLEY /Age/Sex: 1970 - 53 - F Unit#: [id number] Location/Status: SPDIMAM/REG CLI Mnemonic/[facility]ing [facility] Ordering Physician: SHARRI NUÑEZ MD [facility] Screening Digital - 09/08/23 - 0939 Report Status:Signed EXAM: [facility] Screening Digital EXAM DATE AND TIME: 09/08/2023 9:39 AM HISTORY: Annual screening COMPARISON: Multiple exams dating back to 2016 TECHNIQUE: Bilateral digital breast tomosynthesis was performed in the CC and MLO projections. Computer aided detection with [employer] 3D 3.1 was employed. TISSUE DENSITY: b. [...] Procedure Note Porter Lacy MD - 12/20/2023 [facility] Diagnostic Imaging Department [address] [place] [address] Patient: MILSE STANLEYO.B./Age/Sex: 1970 - 53 - F Unit#: [id number] Location/Status: [facility]/REG CLI Mnemonic/Ordering Site: [facility] Ordering Physician: SHARRI NUÑEZ MD [facility] Screening Digital - 09/08/23 - 0939 Report Status:Signed EXAM: [facility] Screening Digital EXAM DATE AND TIME: 09/08/2023 9:39 AM HISTORY: Annual screening COMPARISON: Multiple exams dating back to 2016 TECHNIQUE: Bilateral digital breast tomosynthesis was performed in the CCand MLO projections. Computer aided detection with [employer] 3D 3.1was employed. TISSUE DENSITY: b. There [...] RESULTING AGENCY - 10/04/2017 2:37 PM EDT [id number] THINPREP PAP, IMAGED: NEGATIVE FOR SQUAMOUS INTRAEPITHELIAL [...] to Health Maintenance Insurance MEDICAID - [place] [facility] Care Teams Boarding House Manager Relationship Specialty Start Date End Date Physician, Pcp Unknown PCP - General 10/19/24
--- OUTSIDE RECORDS SUMMARY | 2025-02-15 08:03 | XMS_ITS | Encounter Summary ---
Author Organization [employer] Address [address] 7 [place] [address] Care Team Providers Care Buck Swamper Name Role Phone Sharri Nuñez MD Primary Care Provider [phone] Reason for Visit * Reason Onset Date Comments Nurse Triage 11/20/2024 Encounter Details Date Type Department Care Team ([facility] Contact Info) Description 11/20/2024 Telephone [facility] MED & PEDS [address] [place] [address] Sharri Nuñez MD [address] [place] [address] Nurse Triage Social History Tobacco Use Types [...] anxiety. ASK apt with [facility] 11/23/24 @ 1130am. Pt agrees [...] caller accepted this outcome. Contact pt at [phone] documented in this encounter Plan of Treatment Upcoming Encounters Date Type Department Care Team ([facility] st Contact Info) Description 03/14/2025 2:15 PM EST Office Visit [facility] MED & PEDS [address] [place] [address] Sharri Nuñez MD [address] [place] [address] documented as of this encounter Visit Diagnoses Not on filedocumented in this encounter Additional Health Concerns Assessment Noted Time PHQ-9 Depression Total Score: 13 025 2:12 PM EDT documented as of this encounter Care Teams Buck Swamper Relationship Specialty Start Date End Date Sharri Nuñez MD [address] [place] [address] PCP - General Family Medicine 01/01/21 documented as of this encounter
== END 2025-02-14 08:00 | disposition home or self-care (01) ==
LOC: HO.HOSX 07:59
PROVIDERS: Visit Provider Orthopaedic Surgery
DX: S83.242A Other tear of medial meniscus, current injury, left knee, initial encounter (principal)
CPT/HCPCS: 73562; 99202

== ENCOUNTER 2025-02-14 08:27 | Outpatient (AMB) | payer MEDICAID, SELFPAY ==
--- NOTE | 2025-02-14 08:37 | MHC.OFFVIS ---
Intake Visit Reasons: Left knee pain and giving way Intake Note: Jessica is a 54 year old female who presents with complaints of progressively worsening left knee pain and giving way. The patient states that she injured her knee approximately 4 months ago. She twisted her knee and fell to the ground. Since that time her symptoms have gotten progressively worse. She has failed the last 6 weeks of conservative treatment which has included Tylenol, anti-inflammatory medicines, gabapentin, a home exercise program and physical therapy exercises. Most of her pain is along the medial aspect of her knee. She states that her left knee will give out several times per day. At this point her left knee pain and mechanical symptoms are interfering with her activities of daily living and her ability to sleep well through the night. Allergies No Known Allergies Allergy (Verified 02/14/25 08:47) Medication List - Last Reconciled 02/14/25 by Pierce Rodriguez MD cetirizine 10 mg PO DAILY diclofenac potassium 25 mg PO BID fluticasone propionate 50 mcg/actuation 2 sprays intranasal DAILY montelukast 10 mg PO BEDTIME omeprazole 20 mg PO DAILY pregabalin 75 mg PO BID [facility] Medical History (Updated 02/14/25 @ 08:59 by Pierce Rodriguez MD) Psychosocial stressors Hypertension Chronic back pain Ankle injury No known health problems Surgical History (Updated 11/20/24 @ 10:40 by Lisbeth Kinney MA) History of hysterectomy S/P Social History (Updated 02/14/25 @ 08:46 by Ciara Perkins) Current occupational status: employed Current occupation: [employer] Physical Exam Const Other: Well-nourished well-developed very friendly female awake alert and oriented x3 in no acute distress Extrem Other: Left knee examination shows a minimal effusion, minimal crepitus with range of motion, tenderness along her medial joint line, positive Aleksandr's test, no instability Results Reviewed Results Reviewed: X-rays of the patient's left knee taken today show mild diffuse joint space narrowing, no acute bony abnormalities Assessment & Plan Assessment & Plan (1) Tear of medial meniscus of left knee: Code(s): S83.242A - Other tear of medial meniscus, current injury, left knee, initial encounter Category: Medical Plan Ms. Stanley presents with left knee pain and mechanical symptoms most likely due to a medial meniscus tear. Thus, I will send the patient for an MRI of her left knee for further evaluation. I will see her back once the MRI is completed to discuss the findings and treatment options. Feel free to call me at any time should questions regarding her orthopedic management arise. Thank you very much for asking me to see this very friendly patient. I spent 21 minutes in reviewing the patient's records and imaging studies, seeing the patient and documenting in the medical record. Orders: Orders MR knee LT wo con 02/15/25 S83.242A - Other tear of medial meniscus, current injury, left knee, initial encounter XR knee LT 3V Today M25.562 - Pain in left knee Coding Level of Care Code New Pt Level 3 (09948) Complex EM visit Add On G2211 Diagnoses Tear of medial meniscus of left knee S83.242A
--- OUTSIDE RECORDS SUMMARY | 2025-02-14 08:51 | XMS_ITS | Encounter Summary ---
Author Organization [employer] Address [address] [facility] 7 [place] [address] Care Team Providers Care Regional Engagement Consultant Name Role Phone Sharri Nuñez MD Primary Care Provider [phone] Reason for Visit * Reason Onset Date Comments Appointment Request 08/18/2024 Encounter Details Date Type Department Care Team ([facility] st Contact Info) Description 08/18/2024 Telephone [facility] MEDICINE [address] [place] [address] Sharri Nuñez MD [address] [place] [address] Appointment Request Social History Tobacco Use Types [...] encounter Miscellaneous Notes * Telephone Encounter - Yessneia Regalado - 08/18/2024 10:36 AM EDT Tc from pt requesting schedule appointment with pcp. Recall july documented in this encounter Plan of Treatment Upcoming Encounters Date Type Department Care Team (Late st Contact Info) Description 03/14/2025 2:15 PM EST Office Visit [facility] MED & PEDS [address] [place] [address] Sharri Nuñez MD [address] [place] [address] documented as of this encounter Visit Diagnoses Not on filedocumented in this encounter Additional Health Concerns Assessment Noted Time PHQ-9 Depression Total Score: 8 08/19/19 24 10:22 AM EDT documented as of this encounter Care Teams Regional Engagement Consultant Relationship Specialty Start Date End Date Sharri Nuñez MD [address] [place] [address] PCP - General Family Medicine 01/01/21 documented as of this encounter
--- OUTSIDE RECORDS SUMMARY | 2025-02-14 08:51 | XMS_ITS | Encounter Summary ---
Author Organization [employer] Address [address] [facility] 7 [place] [address] Care Team Providers Care Tier Truck Driver Name Role Phone Sharri Nuñez MD Primary Care Provider [phone] Reason for Visit * Reason Onset Date Comments Nurse Triage 11/20/2024 Encounter Details Date Type Department Care Team ([facility] Contact Info) Description 11/20/2024 Telephone [facility] CHC MED & PEDS [address] [place] [address] Sharri Nuñez MD [address] [place] [address] Nurse Triage Social History Tobacco Use Types [...] encounter Miscellaneous Notes * Telephone Encounter - Heather Amaya RN - 11/20/2024 12:46 PM EDT [...] anxiety. ASK apt with Dr. Rice in [facility] 11/23/24 @ 1130am. Pt agrees with disposition [...] become worse * Telephone Encounter - Pedro Armstrongiz - 11/20/2024 12:24 PM EDT Symptom: High Blood Pressure - Caller Reports Outcome: Schedule a same-day appointment or talk to a nurse or provider today Reason: Caller denied all higher acuity questions The caller accepted this outcome. Contact pt at [phone] documented in this encounter Plan of Treatment Upcoming Encounters Date Type Department Care Team ([facility] st Contact Info) Description 03/14/2025 2:15 PM EST Office Visit [facility] MED & PEDS [address] [place] [address] Sharri Nuñez MD [address] [place] [address] documented as of this encounter Visit Diagnoses Not on filedocumented in this encounter Additional Health Concerns Assessment Noted Time PHQ-9 Depression Total Score: 13 025 2:12 PM EDT documented as of this encounter Care Teams Tier Truck Driver Relationship Specialty Start Date End Date Sharri Nuñez MD [address] [place] [address] PCP - General Family Medicine 01/01/21 documented as of this encounter
--- OUTSIDE RECORDS SUMMARY | 2025-02-14 08:51 | XMS_ITS | Encounter Summary ---
Author Organization [employer] Address [address] [facility] [address] [place] [address] Care Team Providers Care Spa Technician Name Role Phone Sharri Nuñez MD Primary Care Provider [phone] Reason for Visit * Reason Onset Date Comments Appointment Request 09/14/2023 Encounter Details Date Type Department Care Team ([facility] st Contact Info) Description 09/14/2023 Telephone [facility] MEDICINE [address] [place] [address] Sharri Nuñez MD [address] [place] [address] Appointment Request Social History Tobacco Use Types [...] Description 03/14/2025 2:15 PM EST Office Visit [facility] CHC MED & PEDS [address] [place] [address] Sharri Nuñez MD [address] [place] [address] documented as of this encounter Visit Diagnoses Not on filedocumented in this encounter Additional Health Concerns Assessment Noted Time PHQ-9 Depression Total Score: 8 08/19/19 24 10:22 AM EDT documented as of this encounter Care Teams Spa Technician Relationship Specialty Start Date End Date Sharri Nuñez MD [address] [place] [address] PCP - General Family Medicine 01/01/21 documented as of this encounter
--- OUTSIDE RECORDS SUMMARY | 2025-02-14 08:51 | XMS_ITS | Clinical Summary ---
Author Organization [employer] Address [address] [facility] 7t [place] [address] Care Team Providers Care Strand Galvanizer Name Role Phone Sharri Nuñez MD Primary Care Provider [phone] Allergies Active Allergy Reactions Criticality Noted Date Comments Prednisone Anxiety Low 10/19/2024 Medications albuterol (2.5 MG/3ML) 0.083% nebulizer solution Inhale 3 mL every 6 (six) hours. 11/14/19 22 Active ergocalciferol (Vitamin D-2) 1.25 MG (54571 UT) capsule Take 1 capsule once a week for 8 weeks, then start vitamin D3 01/16/20 22 Active Fluticasone-Salm eterol (Advair Diskus) 250-50 MCG/ACT aerosol powder Inhale. 04/03/20 21 Active montelukast (Singulair) 10 MG tablet Take 10 mg by mouth at bedtime. 01/08/20 23 Active Ketotifen Fumarate 0.035 % solution PLACE ONE DROP EACH EYE TWICE A DAY NEEDED 04/14/20 23 Active lidocaine (Lidoderm) 5 % patch Apply [...] by mouth 3 times daily. 90 tablet 02/02/20 25 Active fluticasone (Flonase) 50 MCG/ACT nasal spray Administer 2 sprays into each nostril Once per day. 16 g 3 02/02/20 25 Active cetirizine (ZyrTEC) 10 MG tablet Take 1 tablet (10 mg) by mouth Once per day. 90 tablet 5 02/02/20 25 Active fluticasone (Flonase) 50 MCG/ACT nasal spray Administer 2 sprays into each nostril in the morning. 04/14/20 23 2024 Discontinued(R eorder (will not trigger notification to Pharmacy)) cetirizine (ZyrTEC) 10 MG tablet Take 10 mg by mouth Once per day. 08/17/19 25 2024 Discontinued(R eorder (will not trigger notification to Pharmacy)) diclofenac (Cataflam) 50 MG tabletIndication s:Sacroiliac joint dysfunction of left side,Lumbar back pain with radiculopathy affecting left lower extremity Take 1 tablet (50 mg) by mouth 3 times daily. 90 tablet 09/12/19 25 2024 Discontinued(R eorder (will not trigger notification [...] & Plan (04/21/2022 4:45 PM EST): Reviewed [facility] ED notes, R sided hydronephrosis, with probable small distal uretheral calculus. At this point will cont pain med, patient unable to wait for toradol injection at this time. Cont flomax. Referral to urology. Work excuse given Elevated blood pressure reading 04/21/2022 Assessment & Plan (11/27/2024 3:21 PM EDT): Based on her log of blood pressure values, I do not think she needs blood pressure medication currently, though longer data set would be valuable. She was instructed to continue taking her BP once or twice daily, bring log to nurse visit in 4 weeks, at which time pressure consistently >130/80 would merit a CCB or diuretic. Assessment & Plan (04/21/2022 4:47 PM EST): In the setting of severe pain, will cont monitoring f/u in 4-6 weeks. Encounters Date Type Department Care Team Description 02/01/2025 1:40 PM EDT Office Visit [facility] MED & [facility]EDS [address] [place] [address] Radha Clark MD URI, acute (Primary Dx); Sacroiliac joint dysfunction of left side; Lumbar back pain with radiculopathy affecting left lower extremity 02/01/2025 Travel 02/01/[address] [address] Sharri Nuñez MD Nurse Triage 01/26/2025 9:45 AM EDT Clinical Support [facility] [address] [place] [address] Shivani Linares RN Elevated blood pressure reading 01/26/2025 Travel 01/22/[address] [address] Sharri Nuñez MD 01/19/2025 Telephone [facility] [address] [place] [address] Sharri Nuñez MD sick visit 12/22/2024 9:45 AM EDT Clinical Support [facility] [address] [place] [address] Shivani Linares, [place] Elevated blood pressure reading 12/22/2024 Travel 11/23/2024 11:30 AM EDT Office Visit [facility] [address] [place] [address] Anju Rice MD Elevated blood pressure reading (Primary Dx) 11/23/2024 Travel 11/20/2024 Orders Only [facility] External Provider, [facility] 11/20/2024 Telephone [facility] [address] [place] [address] Sharri Nuñez MD Referral 11/20/2024 Telephone [facility] [address] [place] [address] Sharri Nuñez MD Nurse Triage from Last 3 Months Immunizations Immunization Administration Dates Next Due Influenza, IIV3, injectable 04/10/2014,1 ,01/18/2012,02/13,05/28/2009,05/20/2006 Novel [id number], preservative-free 05/28/2009 Pneumococcal Polysaccharide PPSV23 04/10/2014 TD [...] the past 12 months, has t he [employer], oil or water [employer] threatened to shut off services in your [...] Sign Reading Time Taken Comments Blood Pressure 142/83 02/01/2025 1:41 PM EDT Pulse 91 02/01/2025 1:41 PM EDT Temperature 36.8 C (98.3 F) 02/01/2025 1:41 PM EDT Respiratory Rate 20 02/01/2025 1:41 PM EDT Oxygen Saturation 98% 09/11/2024 2:01 PM EDT Inhaled Oxygen Concentration - - Weight 63.5 kg (140 lb) 02/01/2025 1:41 PM EDT Height 159 cm (5' 2.6 ) 10/26/2024 1:38 PM EDT Body Mass Index 25.12 10/26/2024 1:38 PM EDT Plan of Treatment Upcoming Encounters Date Type Department Care Team (Late st Contact Info) Description 03/14/2025 2:15 PM EST Office Visit [facility] CHC MED & PEDS [address] [place] [address] Sharri Nuñez MD [address] [place] [address] Health Maintenance Due Date Last Done Comments CT Colonography 1972 Colonoscopy 1972 FIT 1972 Sigmoidoscopy 1972 Disability Screening 1972 Family Planning (PISQ) 1987 Hepatitis B Vaccines (1 of 3 - 19+ 3-dose series) 1991 Pap Smear 1993 HPV/Cotest 2002 Pneumococcal Vaccine: 50+ Years (2 of 2 - PCV) 04/10/2015 04/10/2014 FOBT 07/23/2023 07/22/2022 DTaP/Tdap/Td Vaccines (2 - Td or Tdap) 04/10/2024 04/10/2014, 09/01/2005 Mammogram 09/13/2024 09/14/2023 COVID-19 Vaccine ( season) 2025 04/02/2022, 04/22/2021, 08/12/2020, Additional history exists Influenza Vaccine (#1) 2025 4, 02/20/2013, 01/18/2012, Additional history exists Depression Monitoring 03/14/2025 09/11/2024, 025 Colorectal Cancer Screening 07/22/2025 FIT DNA/Cologuard 07/22/2025 07/22/2022 Alcohol/Substance Use Screening 09/11/2025 09/11/2024 SDOH Screening 09/11/2025 09/11/2024 Tobacco Screening 11/27/2025 11/27/2024 RSV Patients and Patients Aged 60 years or older (1 - 1-dose 75+ series) 2047 Zoster Vaccines Completed 08/24/2022, 06/18/2022 HIV Screening Completed 09/12/2024 Hepatitis C Screening Completed 09/12/2024 Cervical Cancer Screening Discontinued HIB Vaccines Aged [...] Procedure Name Priority Date/Time Associated Diagnosis Comments POCT RAPID COVID ANTIGEN Routine 02/01/2025 2:07 PM EDT Sacroiliac joint dysfunction of left side Lumbar back pain with radiculopathy affecting left lower extremity URI, acute POCT RAPID STREP A Routine 02/01/2025 2: 07 PM EDT Sacroiliac joint dysfunction of left side Lumbar back pain with radiculopathy affecting left lower extremity URI, acute POCT INFLUENZA B Routine 02/01/2025 2:07 PM EDT Sacroiliac joint dysfunction of left side Lumbar back pain with radiculopathy affecting left lower extremity URI, acute POCT INFLUENZA A Routine 02/01/2025 2:06 PM EDT Sacroiliac joint dysfunction of left side Lumbar back pain with radiculopathy affecting left lower extremity URI, acute XR HIP BILATERAL WITH PELVIS 1 VIEW Routine 11/21/2024 10:09 PM EDT XR LUMBAR SPINE 2-3 VIEWS Routine 11/21/2024 10:09 PM EDT HEPATITIS PANEL, GENERAL Routine 09/12/2024 9:57 AM EDT Polyarthralgia HIV 1/2 ANTIGEN/ANTIBODY, FOURTH GENERATION W/RFL Routine 09/12/2024 9:57 AM EDT Polyarthralgia HM MAMMOGRAPHY Routine 09/14/2023 LAB COLOGUARD COLON CANCER SCREEN Routine 07/22/2022 from Last 3 Months or Most Recently Relevant to Health Maintenance Results * POCT Rapid Covid-19 BinaxNOW (02/01/2025 2:07 PM EDT) Rapid COVID Ag Negative Swab 02/01/2025 2:07 PM EDT Radha Clark MD POINT OF CARE TEST ENTER/EDIT ORDERABLES Final Result * POCT Rapid Influenza B OSOM (02/01/2025 2:07 PM EDT) [facility] Rapid Influenza B Ag Negative Negative, Indeterminate Swab 02/01/2025 2:07 PM EDT us Radha Clark MD POINT OF CARE TEST ENTER/EDIT ORDERABLES Final Result * POCT Rapid Strep A OSOM (02/01/2025 2:07 PM EDT) [facility] Rapid Strep A Screen Negative Negative, None Detected Swab 02/01/2025 2:07 PM EDT us Radha Clark MD POINT OF CARE TEST ENTER/EDIT ORDERABLES Final Result * POCT Rapid Influenza A OSOM (02/01/2025 2:06 PM EDT) [facility] Rapid Influenza A Ag Negative Negative, Indeterminate Swab Nasopharyngeal structure / Unknown 02/01/2025 2:06 PM EDT us Radha Clark MD POINT OF CARE TEST ENTER/EDIT ORDERABLES Final Result * XR Hips Bilateral with Pelvis 1 view (11/21/2024 10:09 PM EDT) Anatomical Region Laterality Modality Lower Extremities, Hip Bilateral Radiograp hic Imaging 11/21/2024 10:0 9 PM EDT Narrative 11/21/2024 10:11 PM EDT [address] [address] XRay Report Signed Patient: Jessica Stanley MR#: [id number] : 1970 Acct:[id number] Age/Sex: 54 / F ADM Date: 11/20/24 Loc: LEXY Attending Dr: Josesito Hutchison MD Ordering Physician: Josesito Hutchison MD Date of Service: 11/20/24 Procedure(s): XR hip BI w PEL1V Accession Number(s): [id number] cc: Josesito Hutchison MD; Sharri Nuñez MD CLINICAL HISTORY: M25.551 - Pain in right hip Radiographs of the pelvis and bilateral hips, 5 views Comparison: None available Findings: No fracture or dislocation. No degenerative change in the pelvis. Eydz-tv-eeoqlabx lower lumbar degenerative change. Bone mineralization is normal. No soft tissue swelling. Impression: No acute findings. No degenerative change of the hips. This document has been electronically signed by: Susannah Stewart MD on 11/21/2024 22:09:12 Dictated By: Susannah Kirk MD Signed By: <Electronically signed by Susannah Kirk MD in OV> 11/21/242209 DD/ 08 TD/TT: 11/21/242208 Mines Safety Engineer: Procedure Note Donotuseinterpreter, Image - 11/21/2024 [place] [address] XRay Report Signed Patient: Josselyn Stanley#: [id number] : 1970Acct:[id number] Age/Sex: 54 / FADM Date: 11/20/24 Loc: HO.CECELIA Attending Dr: Josesito Hutchison MD Ordering Physician: Josesito Hutchison MD Date of Service: 11/20/24 Procedure(s): XR hip BI w PEL1V Accession Number(s): [id number] cc: Josesito Hutchison MD; Sharri Nuñez MD CLINICAL HISTORY: M25.551 - Pain in right hip Radiographs of the pelvis and bilateral hips, 5 views Comparison: None available Findings: No fracture or dislocation. No degenerative change in the pelvis. Ogut-cl-aufljpff lower lumbar degenerative change. Bone mineralization is normal. No soft tissue swelling. Impression: No acute findings. No degenerative change of the hips. This document has been electronically signed by: Susannah Stewart MD on 11/21/2024 22:09:12 Dictated By: Susannah Kirk MD Signed By: <Electronically signed by Susannah Kirk MD in OV> 11/21/242209 DD/ 08 TD/TT: 11/21/242208 Mines Safety Engineer: us [facility] External Provider IMG XR PROCEDURES Final Result * XR Lumbar Spine 2-3 Views (11/21/2024 10:09 PM EDT) Anatomical Region Laterality Modality Spine, L-spine Radiographic Veda ging 11/21/2024 10:0 9 PM EDT Narrative 11/21/2024 10:11 PM EDT [address] [address] XRay Report Signed Patient: Jessica Stanley MR#: [id number] : 1970 Acct:[id number] Age/Sex: 54 / F ADM Date: 11/20/24 Loc: HO.XRAY Attending Dr: Josesito Hutchison MD Ordering Physician: Josesito Hutchison MD Date of Service: 11/20/24 Procedure(s): XR lumbar spine 2-3V Accession Number(s): [id number] cc: Josesito Hutchison MD; Sharri Nuñez MD CLINICAL HISTORY: M54.9 - Dorsalgia, unspecified Radiographs of the lumbar spine, 3 views Comparison: None available Findings: Mild multilevel retrolisthesis, degenerative. Trace levocurvature with the apex at L3. No fracture. The vertebral body heights are preserved. There is xojd-rg-yazvpujk multilevel intervertebral disc space narrowing with mild endplate osteophytosis. Moderate mid to lower lumbar facet hypertrophy. The soft tissues are normal. Impression: No acute findings. Gtrk-kj-kilecidj degenerative change. This document has been electronically signed by: Susannah Stewart MD on 11/21/2024 22:09:09 Dictated By: Susannah Kirk MD Signed By: <Electronically signed by Susannah Kirk MD in OV> 11/21/242209 DD/ 08 TD/TT: 11/21/242208 Mines Safety Engineer: Procedure Note Donotuseinterpreter, Image - 11/21/[address] [place] [address] [place] [address] XRay Report Signed Patient: Josselyn Stanley#: [id number] : 1970Acct:[id number] Age/Sex: 54 / FADM Date: 11/20/24 Loc: HO.XRAY Attending Dr: Josesito Hutchison MD Ordering Physician: Josesito Hutchison MD Date of Service: 11/20/24 Procedure(s): XR lumbar spine 2-3V Accession Number(s): [id number] cc: Josesito Hutchison MD; Sharri Nuñez MD CLINICAL HISTORY: M54.9 - Dorsalgia, unspecified Radiographs of the lumbar spine, 3 views Comparison: None available Findings: Mild multilevel retrolisthesis, degenerative. Trace levocurvature with the apex at L3. No fracture. The vertebral body heights are preserved. There is jrks-pw-xjciednr multilevel intervertebral disc space narrowing with mild endplate osteophytosis. Moderate mid to lower lumbar facet hypertrophy. The soft tissues are normal. Impression: No acute findings. Npyj-gd-vywvsktq degenerative change. This document has been electronically signed by: Susannah Stewart MD on 11/21/2024 22:09:09 Dictated By: Susannah Kirk MD Signed By: <Electronically signed by Susannah Kirk MD in OV> 11/21/242209 DD/ 08 TD/TT: 11/21/242208 Mines Safety Engineer: [facility] External Provider IMG XR PROCEDURES Final Result * Hepatitis A,B,C Profile (09/12/2024 9:57 AM EDT) Hepatitis A IgM Nonreactive Nonreactive [facility] Comment:IgM antibodies to OLIVERA V not detected; does not exclude earlyacute or recovered HAV infection. ~Hepatitis B Surface Antibody REACTIVE Nonreactive [facility] Comment:REACTIVE: > 11.99 mI U/mL Hepatitis B Core Antibody Nonreactive Nonreactive [facility] Hepatitis C Antibody Nonreactive Nonreactive [facility] Comment:Antibodies to HCV no t detected; does not exclude early acuteHCV infection. Hepatitis B Surface Ag Negative Negative [facility] Blood Venous blood specimen / Unknown 09/12/2024 9:57 AM EDT 09/12/2024 2:07 PM EDT us Sharri Nuñez MD LAB BLOOD ORDERABLES Final Re sult [facility] [address] [place] [address] [phone] * HIV-1/2 Antigen and Antibodies, Fourth Generation, with Reflexes (09/12/2024 9:57 AM EDT) Pathologist [facility] HIV AB/AG Nonreactive Nonreactive [facility] Comment:HIV-1 p24 Ag and/or HIV-1/HIV-2 Ab not detected.A test result that is nonreactive does not exclude thepossibility of exposure to or infection with HIV-1 and/orHIV-2. Nonreactive results in this assay for individualswith prior exposure to HIV-1 and/or HIV-2 may be due toantigen and antibody levels that are below the limit ofdetection of this assay.The [employer] HIV Ag/Ab Combo assay result andsupplemental assay results should be interpreted inconjunction with the patient's clinical presentation,history and other laboratory results. If the results areinconsistent with clinical evidence, additional testing issuggested to confirm the result. Blood Venous blood specimen / Unknown 09/12/2024 9:57 AM EDT 09/12/2024 2:07 PM EDT us Sharri Nuñez MD LAB BLOOD ORDERABLES Final Re sult [facility] [address] [place] [address] [phone] * Mammography (09/14/2023) HM Mammogram BIRADS 1 Normal, Abnormal, BIRADS 1 , BIRADS 2 Anatomical Region Laterality Modality Other Narrative 09/14/2023 09/08/23 Mammo with Upper outer quadrant Left breast asymmetry had compression test (09/14/23) and it was normal. Records scanned in EMR from [facility] us Sharri Nuñez MD HEALTH MAINTENANCE Final Resu lt * Cologuard?? colon cancer screening (07/22/2022) Pathologist [facility] Cologuard Cancer Screen Negative Stool 07/22/2022 us Sharri Nuñez MD LAB MOLECULAR DIAGNOSTICS ORD ERABLES Final Result from Last 3 Months or Most Recently Relevant to Health Maintenance Insurance C3 Care Teams Strand Galvanizer Relationship Specialty Start Date End Date Sharri Nuñez MD [address] [place] [address] PCP - General Family Medicine 01/01/21
--- OUTSIDE RECORDS SUMMARY | 2025-02-14 08:51 | XMS_ITS | Clinical Summary ---
Author Organization [facility] Address [address] [place] [address] Phone Care Team Providers Care Acrobatic Dancer Name Role Phone Physician, Pcp Unknown Primary Care Provider Kath vailable Allergies Active Allergy Reactions Criticality Noted Date Comments Prednisone Anxiety 10/19/2024 Surgical History Surgery Date Site/Laterality Comments SECTION [...] Health Maintenance Due Date Last Done Comments Colorectal Cancer Screening: Colonoscopy 1972 Hepatitis B Vaccines (1 of 3 - 19+ 3-dose series) 1991 Pneumococcal Vaccine: 50+ Years (2 of 2 - PCV) 04/10/2015 04/10/2014 Cervical Cancer Screening: Pap Smear 09/30/2020 09/30/2017 RSV Immunization Adult Patients (1 - Risk 50-74 years 1-dose series) 2022 Hepatitis C Screening 04/05/2022 Social Influencers of Health Screening 04/05/2022 DTaP,Tdap,and Td Vaccines (3 - Td or Tdap) 04/10/2024 04/10/2014, 09/01/2005 Depression Screening 05/03/2024 COVID-19 Vaccine ( season) 2025 04/02/2022, 04/22/2021, [...] Recently Relevant to Health Maintenance Results * DOMINICK SCREENING DIGITAL (09/10/2023 8:28 AM EDT) Anatomical Region Laterality Modality Mammography 09/08/2023 9:04 AM EDT Narrative 09/10/2023 8:[address] [facility] Diagnostic Imaging Department [address] [place] [address] Patient: MILES STANLEY /Age/Sex: 1970 - 53 - F Unit#: [id number] Location/Status: SPDIMAM/REG CLI Mnemonic/Ordering Site: [facility] Ordering Physician: SHARRI NUÑEZ MD [facility] Screening Digital - 09/08/23 - 0939 Report Status:Signed EXAM: [facility] Screening Digital EXAM DATE AND TIME: 09/08/2023 9:39 AM HISTORY: Annual screening COMPARISON: Multiple exams dating back to 2016 TECHNIQUE: Bilateral digital breast tomosynthesis was performed in the CC and MLO projections. Computer aided detection with [employer] 3D 3.1 was employed. TISSUE DENSITY: b. [...] Note Porter Lacy MD - 12/20/2023 [facility] Diagnostic Imaging Department [address] [place] [id number] Patient: MILES STANLEYO.B./Age/Sex: 1970 - 53 - F Unit#: [id number] Location/Status: [facility]/REG CLI Mnemonic/Ordering Site: [facility] Ordering Physician: SHARRI NUÑEZ MD [facility] Screening Digital - 09/08/23 - 0939 Report Status:Signed EXAM: [facility] Screening Digital EXAM DATE AND TIME: 09/08/2023 9:39 AM HISTORY: Annual screening COMPARISON: Multiple exams dating back to 2016 TECHNIQUE: Bilateral digital breast tomosynthesis was performed in the CCand MLO projections. Computer aided detection with i[employer] 3D 3.1was employed. TISSUE DENSITY: b. There [...] MD Dic Date/Time: 09/10/23825 Sign date/Time: 09/10/23827 Sharri Nuñez MD IMG BI PROCEDURES Final Resul t * Pap smear (09/30/2017) 09/30/2017 Narrative HISTORICAL TESTING LAB RESULTING AGENCY - 10/04/2017 2:37 PM EDT [id number] THINPREP PAP, IMAGED: NEGATIVE FOR SQUAMOUS INTRAEPITHELIAL [...] to Health Maintenance Insurance [place] - [place] [facility] Care Teams Acrobatic Dancer Relationship Specialty Start Date End Date Physician, Pcp Unknown PCP - General 10/19/24
== END 2025-02-14 08:55 | disposition home or self-care (01) ==
LOC: HO.HOS 08:28
PROVIDERS: PCP Family Medicine; Visit Provider Orthopaedic Surgery
DX: S83.242A Other tear of medial meniscus, current injury, left knee, initial encounter (principal)
CPT/HCPCS: 99203

== ENCOUNTER → 2025-02-14 08:30 | Outpatient (BNV) | payer MEDICAID, SELFPAY | PROVIDERS: Visit Provider Radiology Diagnostic Radiology | DX: M11.262 Other chondrocalcinosis, left knee (principal) | CPT/HCPCS: 73562 ==

== ENCOUNTER 2025-03-28 07:18 | Outpatient (REF) | payer MEDICAID, SELFPAY ==
--- NOTE | ~2025-03-28 | MR_ITS ---
EXAMINATION: MR KNEE WITHOUT CONTRAST, LEFT CLINICAL INFORMATION: Tear of the medial meniscus. COMPARISON: None available. TECHNIQUE: MRI of the knee without contrast was performed using routine sequences on a high-field scanner. FINDINGS: MENISCI: Medial Meniscus: Intrasubstance degenerative signal in the posterior horn and the posterior horn/body junction, with mild tibial articular surface fraying/ill-defined tear. Degeneration in the body . Lateral Meniscus: Complex tear of the anterior horn and anterior root. Degeneration with femoral articular surface of the body. Body is partially extruded into the meniscofemoral recess... Degenerative fraying of the posterior horn/posterior root LIGAMENTS: Cruciate: ACL mucoid degeneration. Intact PCL. Collateral: Intact EXTENSOR MECHANISM: Intact ARTICULAR CARTILAGE/BONE: Patellofemoral Compartment: Mild arthritis. Medial patellar facet chondral thinning, subchondral edema. Medial Compartment: Minimal arthritis, mild chondral thinning. Lateral Compartment: Mild arthritis, mild chondral thinning. Subchondral degenerative cyst in the central tibia. No fracture. JOINT FLUID AND BURSAE: Small-moderate effusion. Small Galarza's cyst. MR/MR knee LT wo con IMPRESSION: * Mild degenerative fraying/ill-defined tear of the posterior horn and posterior/body junction. * Complex tear of the anterior horn, anterior root of the lateral meniscus. Tear of the body. Degenerative fraying of the posterior horn/posterior root. * ACL mucoid degeneration * Tricompartment arthritis *Small-moderate effusion. Small Galarza's cyst. Electronically signed by: Tino Corona MD 03/28/2025 04:18 PM [facility]
--- OUTSIDE RECORDS SUMMARY | 2025-03-28 07:21 | XMS_ITS | Encounter Summary ---
Author Organization [employer] Address [address] [place] [address] Care Team Providers Care Editorial Director Name Role Phone Sharri Nuñez MD Primary Care Provider [phone] Reason for Visit * Reason Onset Date Comments Appointment Request 08/18/2024 Encounter Details Date Type Department Care Team ([facility] st Contact Info) Description 08/18/2024 Telephone [facility] MEDICINE [address] [place] [address] Sharri Nuñez MD [address] [place] [address] Appointment Request Social History Tobacco Use Types [...] Care Team (Late st Contact Info) Description 04/20/2025 8:45 AM EST Office Visit [facility] MED & PEDS [address] [place] [address] Sharri Nuñez MD [address] [place] [address] documented as of this encounter Visit Diagnoses Not on filedocumented in this encounter Additional Health Concerns Assessment Noted Time PHQ-9 Depression Total Score: 8 08/19/19 24 10:22 AM EDT documented as of this encounter Care Teams Editorial Director Relationship Specialty Start Date End Date Sharri Nuñez MD [address] [place] [address] PCP - General Family Medicine 01/01/21 documented as of this encounter
--- OUTSIDE RECORDS SUMMARY | 2025-03-28 07:21 | XMS_ITS | Clinical Summary ---
Author Organization [facility] Address [address] [place] [address] Phone Care Team Providers Care Oracle Fusion Developer Name Role Phone Physician, Pcp Unknown Primary [...] Years Used Date Smoking Tobacco: Former Cigarettes 0.5 Q uit: 05/03/2008 Smokeless Tobacco: Never Alcohol [...] AM EDT Narrative 09/10/2023 8:[address] [facility] Diagnostic Imaging Department [address] [place] [address] Patient: JADENMILES /Age/Sex: 1970 - 53 - F Unit#: [id number] Location/Status: [facility]/REG CLI Mnemonic/Ordering Site: [facility] Ordering Physician: SHARRI NUÑEZ MD [facility] Screening Digital - 09/08/23 - 0939 Report Status:Signed EXAM: [facility] Screening Digital EXAM DATE AND TIME: 09/08/2023 9:39 AM HISTORY: Annual screening COMPARISON: Multiple exams dating back to 2016 TECHNIQUE: Bilateral digital breast tomosynthesis was performed in the CC and MLO projections. Computer aided detection with [employer] 3D 3.1 was employed. TISSUE DENSITY: b. [...] Procedure Note Porter Lacy MD - 12/20/[address] [facility] Diagnostic Imaging Department [address] [place] [id number] Patient: MILES STANLEY/Age/Sex: 1970 - 53 - F Unit#: [id number] Location/Status: [facility]/REG CLI Mnemonic/Ordering Site: [facility] Ordering Physician: SHARRI NUÑEZ MD [facility] Screening Digital - 09/08/23 - 0939 Report Status:Signed EXAM: [facility] Screening Digital EXAM DATE AND TIME: 09/08/2023 9:39 AM HISTORY: Annual screening COMPARISON: Multiple exams dating back to 2016 TECHNIQUE: Bilateral digital breast tomosynthesis was performed in the CCand MLO projections. Computer aided detection with [employer] 3D 3.1was employed. TISSUE DENSITY: b. There [...] RESULTING AGENCY - 10/04/2017 2:37 PM EDT [id number] THINPREP PAP, IMAGED: NEGATIVE FOR SQUAMOUS INTRAEPITHELIAL [...] to Health Maintenance Insurance [place]ICAID - [place] [facility] Care Teams Oracle Fusion Developer Relationship Specialty Start Date End Date Physician, Pcp Unknown PCP - General 10/19/24
--- OUTSIDE RECORDS SUMMARY | 2025-03-28 07:21 | XMS_ITS | Encounter Summary ---
Author Organization [employer] Address [address] [facility] [address] [place] [address] Care Team Providers Care Production Generalist Name Role Phone Sharri Nuñez MD Primary Care Provider [phone] Reason for Visit * Reason Onset Date Comments Nurse Triage 11/20/2024 Encounter Details Date Type Department Care Team ([facility] Contact Info) Description 11/20/2024 Telephone [facility] MED & PEDS [address] [place] [address] Sharri Nuñez MD [address] [place] [address] Nurse Triage Social History Tobacco Use Types [...] anxiety. ASK apt with Dr. Rice in [facility] 11/23/24 @ 1130am. Pt agrees with disposition [...] caller accepted this outcome. Contact pt at [phone] documented in this encounter Plan of Treatment Upcoming Encounters Date Type Department Care Team (Late st Contact Info) Description 04/20/2025 8:45 AM EST Office Visit [facility] MED & PEDS [address] [place] [address] Sharri Nuñez MD [address] [place] [address] documented as of this encounter Visit Diagnoses Not on filedocumented in this encounter Additional Health Concerns Assessment Noted Time PHQ-9 Depression Total Score: 13 025 2:12 PM EDT documented as of this encounter Care Teams Production Generalist Relationship Specialty Start Date End Date Sharri Nuñez MD [address] [place] [address] PCP - General Family Medicine 01/01/21 documented as of this encounter
--- OUTSIDE RECORDS SUMMARY | 2025-03-28 07:21 | XMS_ITS | Encounter Summary ---
Author Organization [employer] Address [address] [place] [address] Care Team Providers Care Director Of Intercollegiate Athletics Name Role Phone Sharri Nuñez MD Primary Care Provider [phone] Reason for Visit * Reason Onset Date Comments Appointment Request 09/14/2023 Encounter Details Date Type Department Care Team ([facility] st Contact Info) Description 09/14/2023 Telephone [facility] MEDICINE [address] [place] [address] Sharri Nuñez MD [address] [place] [address] Appointment Request Social History Tobacco Use Types [...] Description 04/20/2025 8:45 AM EST Office Visit [facility]C MED & PEDS [address] [place] [address] Sharri Nuñez MD [address] [place] [address] documented as of this encounter Visit Diagnoses Not on filedocumented in this encounter Additional Health Concerns Assessment Noted Time PHQ-9 Depression Total Score: 8 08/19/19 24 10:22 AM EDT documented as of this encounter Care Teams Director Of Intercollegiate Athletics Relationship Specialty Start Date End Date Sharri Nuñez MD [address] [place] [address] PCP - General Family Medicine 01/01/21 documented as of this encounter
--- OUTSIDE RECORDS SUMMARY | 2025-03-28 07:21 | XMS_ITS | Clinical Summary ---
Author Organization [employer] Address [address] [facility] [address] [place] [address] Care Team Providers Care Interventional Sale Consultant Name Role Phone Sharri Nuñez MD Primary Care Provider [phone] Allergies Active Allergy Reactions Criticality Noted Date Comments Prednisone Anxiety Low 10/19/2024 Medications albuterol (2.5 MG/3ML) 0.083% nebulizer solution Inhale 3 mL every 6 (six) hours. 2 Active ergocalciferol (Vitamin D-2) 1.25 MG (13728 UT) capsule Take 1 capsule once a week for 8 weeks, then start vitamin D3 2 Active Fluticasone-Salme terol (Advair Diskus) 250-50 MCG/ACT aerosol powder Inhale. 1 Active montelukast (Singulair) 10 MG tablet Take 10 mg by mouth at bedtime. 3 Active Ketotifen Fumarate 0.035 % solution PLACE ONE DROP EACH EYE TWICE A DAY NEEDED 3 Active lidocaine (Lidoderm) 5 % patch Apply 1 patch topically Once per day. Remove & discard patch within 12 hours or as directed by . 30 patch 2 5 Active omeprazole (PriLOSEC) [address] capsuleIndication s:GERD without esophagitis Take 1 capsule (20 mg) by mouth Once per day. 90 capsule 1 5 Active diclofenac (Cataflam) 50 MG tabletIndications :Sacroiliac joint dysfunction of left side,Lumbar back pain with radiculopathy affecting left lower extremity Take 1 tablet (50 mg) by mouth 3 times daily. 90 tablet Active fluticasone (Flonase) 50 MCG/ACT nasal spray Administer 2 sprays into each nostril Once per day. 16 g 3 Active cetirizine (ZyrTEC) 10 MG tablet Take 1 tablet (10 mg) by mouth Once per day. 90 tablet 5 5 Active Active Problems Problem Noted Date Diagnosed Date [...] & Plan (04/21/2022 4:45 PM EST): Reviewed [facility] ED notes, R sided hydronephrosis, with [...] Encounters Date Type Department Care Team Description 03/06/2025 Patient Outreach [facility] [address] [place] [address] Sharri Nuñez MD Pre-visit Planning (SDOH screening completed on 09/11/24) 02/01/2025 1:40 PM EDT Office Visit [facility] [address] [place] [address] Radha Clark MD URI, acute (Primary Dx); Sacroiliac joint dysfunction of left side; Lumbar back pain with radiculopathy affecting left lower extremity 02/01/2025 Travel 02/01/2025 Telephone [facility] [address] [place] [address] Sharri Nuñez MD Nurse Triage 01/26/2025 9:45 AM EDT Clinical Support [facility] [address], [place] [phone] Shivani Linares RN Elevated blood pressure reading 01/26/2025 Travel 01/22/2025 Telephone [facility] [address] [place], [place] [phone] Sharri Nuñez MD 01/19/2025 Telephone [facility] [address], [place] [phone] Sharri Nuñez MD sick visit from Last 3 Months Immunizations Immunization Administration Dates Next Due Influenza, IIV3, injectable 04/10/2014,1 ,01/18/2012,02/13,05/28/2009,05/20/2006 Novel [id number], preservative-free 05/28/2009 Pneumococcal Polysaccharide PPSV23 04/10/2014 TD [...] Upcoming Encounters Date Type Department Care Team ([facility] st Contact Info) Description 04/20/2025 8:45 AM EST Office Visit [facility] [address] [place] [address] Sharri Nuñez MD [address] [place] [phone] Health Maintenance Due Date Last Done Comments CT Colonography 1972 Colonoscopy 1972 FIT 1972 Sigmoidoscopy 1972 Disability Screening 1972 Hepatitis B Vaccines (1 of 3 - 19+ 3-dose series) 1991 Pap Smear 1993 HPV/Cotest 2002 Pneumococcal Vaccine: 50+ Years (2 of 2 - PCV) 04/10/2015 04/10/2014 RSV Patients and Patients Aged 60 years or older (1 - Risk 50-74 years 1-dose series) 2022 FOBT 07/23/2023 07/22/2022 DTaP/Tdap/Td Vaccines (2 - Td or Tdap) 04/10/2024 04/10/2014, 09/01/2005 Mammogram 09/13/2024 09/14/2023 COVID-19 Vaccine ( season) 2025 04/02/2022, 04/22/2021, 08/12/2020, Additional history exists Influenza Vaccine (#1) 2025 4, 02/20/2013, 01/18/2012, Additional history exists Depression Monitoring 03/14/2025 09/11/2024, 025 Colorectal Cancer Screening 07/22/2025 FIT DNA/Cologuard 07/22/2025 07/22/2022 Alcohol/Substance Use Screening 09/11/2025 09/11/2024 SDOH Screening 09/11/2025 09/11/2024 Tobacco Screening 11/27/2025 11/27/2024 Zoster Vaccines Completed 08/24/2022, 06/18/2022 HIV Screening [...] radiculopathy affecting left lower extremity URI, acute HEPATITIS PANEL, GENERAL Routine 09/12/2024 9:57 AM EDT Polyarthralgia HIV 1/2 ANTIGEN/ANTIBODY, FOURTH GENERATION W/RFL Routine 09/12/2024 9:57 AM EDT Polyarthralgia HM MAMMOGRAPHY Routine 09/14/2023 LAB COLOGUARD COLON CANCER SCREEN Routine 07/22/2022 from Last 3 Months or Most Recently Relevant to Health Maintenance Results * POCT Rapid Covid-19 BinaxNOW (02/01/2025 2:07 PM EDT) Rapid COVID Ag Negative Swab 02/01/2025 2:07 PM EDT us Radha Clark MD POINT OF CARE TEST ENTER/EDIT ORDERABLES Final Result * POCT Rapid Influenza B OSOM (02/01/2025 2:07 PM EDT) [facility] Rapid Influenza B Ag Negative Negative, Indeterminate Swab 02/01/2025 2:07 PM EDT us Radha Clark MD POINT OF CARE TEST ENTER/EDIT ORDERABLES Final Result * POCT Rapid Strep A OSOM (02/01/2025 2:07 PM EDT) [facility] Rapid Strep A Screen Negative Negative, None Detected Swab 02/01/2025 2:07 PM EDT Result [facility] us Radha Clark MD POINT OF CARE TEST ENTER/EDIT ORDERABLES Final Result * POCT Rapid Influenza A OSOM (02/01/2025 2:06 PM EDT) [facility] Rapid Influenza A Ag Negative Negative, Indeterminate Swab Nasopharyngeal structure / Unknown 02/01/2025 2:06 PM EDT Result [facility] us Radha Clark MD POINT OF CARE TEST ENTER/EDIT ORDERABLES Final Result * Hepatitis A,B,C Profile (09/12/2024 9:57 AM EDT) [facility] Hepatitis A IgM Nonreactive Nonreactive [facility] Comment:IgM antibodies to OLIVERA V not detected; does not exclude earlyacute or recovered HAV infection. ~Hepatitis B Surface Antibody REACTIVE Nonreactive [facility] Comment:REACTIVE: > 11.99 mI U/mL Hepatitis B Core Antibody Nonreactive Nonreactive [facility] Hepatitis C Antibody Nonreactive Nonreactive [facility] Comment:Antibodies to HCV no t detected; does not exclude early acuteHCV infection. Hepatitis B Surface Ag Negative Negative [facility] Blood Venous blood specimen / Unknown 09/12/2024 9:57 AM EDT 09/12/2024 2:07 PM EDT Sharri Nuñez MD LAB BLOOD ORDERABLES Final Re sult Performing Organization Address [facility] Co de Phone Number [facility] [address] [place] [phone] * HIV-1/2 Antigen and Antibodies, Fourth Generation, with Reflexes (09/12/2024 9:57 AM EDT) Pathologist [facility] HIV AB/AG Nonreactive Nonreactive [facility] Comment:HIV-1 p24 Ag and/or HIV-1/HIV-2 Ab not detected.A test result that is nonreactive does not exclude thepossibility of exposure to or infection with HIV-1 and/orHIV-2. Nonreactive results in this assay for individualswith prior exposure to HIV-1 and/or HIV-2 may be due toantigen and antibody levels that are below the limit ofdetection of this assay.The [employer] HIV Ag/Ab Combo assay result andsupplemental assay results should be interpreted inconjunction with the patient's clinical presentation,history and other laboratory results. If the results areinconsistent with clinical evidence, additional testing issuggested to confirm the result. Blood Venous blood specimen / Unknown 09/12/2024 9:57 AM EDT 09/12/2024 2:07 PM EDT Sharri Nuñez MD LAB BLOOD ORDERABLES Final Re sult Performing Organization Address [facility]/ZIP Co de Phone Number [facility] [address] [place] [address] [phone] * Mammography (09/14/2023) Mammogram BIRADS 1 Normal, Abnormal, BIRADS 1 , BIRADS 2 Anatomical Region Laterality Modality Other Narrative 09/14/2023 09/08/23 Mammo with Upper outer quadrant Left breast asymmetry had compression test (5/14/24) and it was normal. Records scanned in EMR from [facility] us Sharri Nuñez MD HEALTH MAINTENANCE Final Resu lt * Cologuard?? colon cancer screening (07/22/2022) Cologuard Cancer Screen Negative Stool 07/22/2022 us Sharri Nuñez MD LAB MOLECULAR DIAGNOSTICS ORD ERABLES Final Result from Last 3 Months or Most Recently Relevant to Health Maintenance Insurance [employer] Care Teams Interventional Sale Consultant Relationship Specialty Start Date End Date Sharri Nuñez MD [address] [place] [address] PCP - General Family Medicine 01/01/21
== END 2025-03-28 07:19 | disposition home or self-care (01) ==
LOC: HO.MRI 07:18
PROVIDERS: PCP Family Medicine; Visit Provider Orthopaedic Surgery
DX: S83.242A Other tear of medial meniscus, current injury, left knee, initial encounter (principal)
CPT/HCPCS: 73721

== ENCOUNTER → 2025-03-28 07:23 | Outpatient (BNV) | payer MEDICAID, SELFPAY | PROVIDERS: PCP Family Medicine; Visit Provider Radiology Diagnostic Ultrasound | DX: S83.242A Other tear of medial meniscus, current injury, left knee, initial encounter (principal); M17.12 Unilateral primary osteoarthritis, left knee; M25.462 Effusion, left knee; M71.22 Synovial cyst of popliteal space [Baker], left knee | CPT/HCPCS: 73721 ==

== ENCOUNTER 2025-04-17 08:27 | Outpatient (AMB) | payer MEDICAID, SELFPAY ==
--- NOTE | 2025-04-17 08:33 | A.OFFVIS_ITS ---
Intake Visit Reasons: Left knee pain and giving way Intake Note: Jessica is a 55 year old female who presents with complaints of progressively worsening left knee pain and giving way. The patient states that she injured her knee approximately 4 months ago. She twisted her knee and fell to the ground. Since that time her symptoms have gotten progressively worse. She has failed the last 6 weeks of conservative treatment which has included Tylenol, anti-inflammatory medicines, gabapentin, a home exercise program and physical therapy exercises. Most of her pain is along the medial aspect of her knee. She states that her left knee will give out several times per day. At this point her left knee pain and mechanical symptoms are interfering with her activities of daily living and her ability to sleep well through the night. Allergies No Known Allergies Allergy (Verified 02/14/25 08:47) Medication List - Last Reconciled 04/17/25 by Pierce Rodriguez MD cetirizine 10 mg PO DAILY diclofenac potassium 25 mg PO BID fluticasone propionate 50 mcg/actuation 2 sprays intranasal DAILY montelukast 10 mg PO BEDTIME omeprazole 20 mg PO DAILY pregabalin 75 mg PO BID [facility] Medical History Psychosocial stressors Hypertension Chronic back pain Ankle injury No known health problems Surgical History History of hysterectomy S/P Social History Current occupational status: employed Current occupation: [employer] Physical Exam Const Other: Well-nourished well-developed very friendly female awake alert and oriented x3 in no acute distress Extrem Other: Bilateral lower extremity examination shows good capillary refill, no skin lesions noted, normal sensation light touch Left knee examination shows a minimal effusion, mild crepitus with range of motion, tenderness along her medial and lateral joint lines, positive Aleksandr's test, no instability Results Reviewed Results Reviewed: Standing full weight-bearing x-rays of the patient's left knee show mild diffuse joint space narrowing, no acute bony abnormalities MRI of the patient's left knee shows mild diffuse degenerative changes as well as tearing of the medial and lateral menisci Assessment & Plan Assessment & Plan (1) Tear of medial meniscus of left knee: Code(s): S83.242A - Other tear of medial meniscus, current injury, left knee, initial encounter Category: Medical Plan Ms. Stanley presents with progressively worsening left knee pain and mechanical symptoms due to tearing of her medial and lateral menisci. I had a lengthy discussion with the patient regarding the treatment options. At this point she has failed continued non operative treatments. The risks and benefits of left knee arthroscopic surgery were discussed at length with the patient. The patient wishes to proceed with surgery. Surgery will involve left knee arthroscopic partial medial and lateral meniscectomies. The patient does un derstand that she may not get 100% relief of her symptoms depending on the severity of her degenerative changes. The patient will be scheduled for next available date. She will follow up as instructed. Feel free to call me at any time should questions regarding her orthopedic management arise. I spent 21 minutes in reviewing the patient's records and imaging studies, seeing the patient and documenting in the medical record. Coding Level of Care Code Est Pt Level 3 (25928) Add On Problem Visit Only Diagnoses Tear of medial meniscus of left knee S83.242A
--- OUTSIDE RECORDS SUMMARY | 2025-04-17 08:55 | XMS_ITS | Clinical Summary ---
Author Organization [employer] Address [address] [facility] 7t [place] [address] Care Team Providers Care Md Pediatric Allergist Name Role Phone Sharri Nuñez MD Primary Care Provider [phone] Allergies Active Allergy Reactions Criticality Noted Date Comments Prednisone Anxiety Low 10/19/2024 Medications albuterol (2.5 MG/3ML) 0.083% nebulizer solution Inhale 3 mL every 6 (six) hours. 2 Active ergocalciferol (Vitamin D-2) 1.25 MG (16389 UT) capsule Take 1 capsule once a [...] & Plan (04/21/2022 4:45 PM EST): Reviewed [facility] ED notes, R sided hydronephrosis, with [...] Encounters Date Type Department Care Team Description 04/13/2025 Patient Outreach [facility] MED & PEDS [address] [place], [place] [phone] Sharri Nuñez MD Pre-visit Planning (SDOH was already completed ) 04/03/2025 Telephone [facility] [address] [place] [address] Carol Moeller OCTAV[place] 04/03/[address] [address] Sharri Nuñez MD Nurse Triage 03/28/2025 Orders Only [facility] External Provider, [facility] 03/06/2025 Patient Outreach [address] [address] Sharri Nuñez MD Pre-visit Planning ([facility] screening completed on 09/11/24) 02/01/2025 1:40 PM EDT Office Visit [facility] MED & PEDS [address] [place] [address] Radha Clrak MD URI, acute (Primary Dx); Sacroiliac joint dysfunction of left side; Lumbar back pain with radiculopathy affecting left lower extremity 02/01/2025 Travel 02/01/[address] [address] Sharri Nuñez MD Nurse Triage 01/26/2025 9:45 AM EDT Clinical Support [facility] MED & PEDS [address] [place] [address] Shivani Linares, OCTAVIA Elevated blood pressure reading 01/26/2025 Travel 01/22/[address] [address] Sharri Nuñez MD 01/19/2025 Telephone [facility] MED & PEDS [address] [place], [place] [phone] Sharri Nuñez MD sick visit from Last 3 Months Immunizations Immunization Administration Dates Next Due Influenza, IIV3, injectable 04/10/2014,1 ,01/18/2012,02/13,05/28/2009,05/20/2006 Novel [id number], preservative-free 05/28/2009 Pneumococcal Polysaccharide PPSV23 04/10/2014 TD [...] Description 04/20/2025 8:45 AM EST Office Visit [facility] [address] [place] [address] Sharri Nuñez MD [address] [place] [address] Health Maintenance Due Date Last Done Comments [...] Procedure Name Priority Date/Time Associated Diagnosis Comments MR KNEE WO CONTRAST LEFT Routine 03/28/2025 7:22 AM EST POCT RAPID COVID ANTIGEN Routine 02/01/2025 2:07 [...] Recently Relevant to Health Maintenance Results * MR Knee w/o Contrast Left (03/28/2025 7:22 AM EST) Anatomical Region Laterality Modality Magnetic Resonan ce 03/28/2025 7:22 AM EST Narrative 03/28/2025 4:21 PM EST [place] [id number] Magnetic Resonance Report Signed Patient: Jessica Stanley MR#: [id number] : 1970 Acct:[id number] Age/Sex: 55 / F ADM Date: 03/28/25 Loc: HO.MRI Attending Dr: Pierce Rodriguez MD Ordering Physician: Pierce Rodriguez MD Date of Service: 03/28/25 Procedure(s): MR knee LT wo con Accession Number(s): [id number] cc: Pierce Rodriguez MD; Sharri Nuñez MD Reason for Exam: S83.242A - Other tear of medial meniscus, current injury, left knee, ini... EXAMINATION: MR KNEE WITHOUT CONTRAST, LEFT CLINICAL INFORMATION: Tear of the medial meniscus. COMPARISON: None available. TECHNIQUE: MRI of the knee without contrast was performed using routine sequences on a high-field scanner. FINDINGS: MENISCI: Medial Meniscus: Intrasubstance degenerative signal in the posterior horn and the posterior horn/body junction, with mild tibial articular surface fraying/ill-defined tear. Degeneration in the body . Lateral Meniscus: Complex tear of the anterior horn and anterior root. Degeneration with femoral articular surface of the body. Body is partially extruded into the meniscofemoral recess... Degenerative fraying of the posterior horn/posterior root LIGAMENTS: Cruciate: ACL mucoid degeneration. Intact PCL. Collateral: Intact EXTENSOR MECHANISM: Intact ARTICULAR CARTILAGE/BONE: Patellofemoral Compartment: Mild arthritis. Medial patellar facet chondral thinning, subchondral edema. Medial Compartment: Minimal arthritis, mild chondral thinning. Lateral Compartment: Mild arthritis, mild chondral thinning. Subchondral degenerative cyst in the central tibia. No fracture. JOINT FLUID AND BURSAE: Small-moderate effusion. Small Galarza's cyst. MR/MR knee LT wo con IMPRESSION: * Mild degenerative fraying/ill-defined tear of the posterior horn and posterior/body junction. * Complex tear of the anterior horn, anterior root of the lateral meniscus. Tear of the body. Degenerative fraying of the posterior horn/posterior root. * ACL mucoid degeneration * Tricompartment arthritis *Small-moderate effusion. Small Galarza's cyst. Electronically signed by: Tino Corona MD 03/28/2025 04:18 PM [facility] Dictated By: Tino Corona MD Signed By: <Electronically signed by Tino Corona MD in OV> 03/28/25 1618 DD/ 0722 TD/TT: 03/28/25 0800 Registered Nurse First Assistant: JOHN Procedure Note Donotuseinterpreter, Image - 03/28/2025 [place] [id number] Magnetic Resonance Report Signed Patient: Josselyn Stanley#: [id number] : 1970Acct:[id number] Age/Sex: 55 / FADM Date: 03/28/25 Loc: HO.MRI Attending Dr: Pierce Rodriguez MD Ordering Physician: Pierce Rodriguze MD Date of Service: 03/28/25 Procedure(s): MR knee LT wo con Accession Number(s): [id number] cc: Pierce Rodriguez MD; Sharri Nuñez MD Reason for Exam: S83.242A - Other tear of medial meniscus, currentinjury, left knee, ini... EXAMINATION: MR KNEE WITHOUT CONTRAST, LEFT CLINICAL INFORMATION: Tear of the medial meniscus. COMPARISON: None available. TECHNIQUE: MRI of the knee without contrast was performed using routine sequences on a high-field scanner. FINDINGS: MENISCI: Medial Meniscus: Intrasubstance degenerative signal in the posterior horn and the posterior horn/body junction, with mild tibial articular surface fraying/ill-defined tear. Degeneration in the body . Lateral Meniscus: Complex tear of the anterior horn and anterior root. Degeneration with femoral articular surface of the body. Body is partially extruded into the meniscofemoral recess... Degenerative fraying of the posterior horn/posterior root LIGAMENTS: Cruciate: ACL mucoid degeneration. Intact PCL. Collateral: Intact EXTENSOR MECHANISM: Intact ARTICULAR CARTILAGE/BONE: Patellofemoral Compartment: Mild arthritis. Medial patellar facet chondral thinning, subchondral edema. Medial Compartment: Minimal arthritis, mild chondral thinning. Lateral Compartment: Mild arthritis, mild chondral thinning. Subchondral degenerative cyst in the central tibia. No fracture. JOINT FLUID AND BURSAE: Small-moderate effusion. Small Galarza's cyst. MR/MR knee LT wo con IMPRESSION: * Mild degenerative fraying/ill-defined tear of the posterior horn and posterior/body junction. * Complex tear of the anterior horn, anterior root of the lateral meniscus. Tear of the body. Degenerative fraying of the posterior horn/posterior root. * ACL mucoid degeneration * Tricompartment arthritis *Small-moderate effusion. Small Galarza's cyst. Electronically signed by: Tino Corona MD 03/28/2025 04:18 PM [facility] Dictated By: Tino Corona MD Signed By: <Electronically signed by Tino Corona MD in OV> 03/28/25 1618 DD/ 0722 TD/TT: 03/28/25 0800 Registered Nurse First Assistant: JOHN [facility] External Provider IMG MRI PROCEDURES Final Result * POCT Rapid Covid-19 BinaxNOW (02/01/2025 2:07 PM EDT) Rapid COVID Ag Negative Swab 02/01/2025 2:07 PM EDT us Radha Clark MD POINT OF CARE TEST ENTER/EDIT ORDERABLES Final Result * POCT Rapid Influenza B OSOM (02/01/2025 2:07 PM EDT) [facility] Rapid Influenza B Ag Negative Negative, Indeterminate Swab 02/01/2025 2:07 PM EDT us Radha Clark MD POINT OF CARE TEST ENTER/EDIT ORDERABLES Final Result * POCT Rapid Strep A OSOM (02/01/2025 2:07 PM EDT) [facility] Rapid Strep A Screen Negative Negative, None Detected Swab 02/01/2025 2:07 PM EDT us Radha Clark MD POINT OF CARE TEST ENTER/EDIT ORDERABLES Final Result * POCT Rapid Influenza A OSOM (02/01/2025 2:06 PM EDT) [facility] Rapid Influenza A Ag Negative Negative, Indeterminate Swab Nasopharyngeal structure / Unknown 02/01/2025 2:06 PM EDT Result [facility] us Radha Clark MD POINT OF CARE TEST ENTER/EDIT ORDERABLES Final Result * Hepatitis A,B,C Profile (09/12/2024 9:57 AM EDT) [facility] Hepatitis A IgM Nonreactive Nonreactive [facility] Comment:IgM antibodies to OLIVERA V not detected; does not exclude earlyacute or recovered HAV infection. ~Hepatitis B Surface Antibody REACTIVE Nonreactive [facility] Comment:REACTIVE: > 11.99 mI U/mL Hepatitis B Core Antibody Nonreactive Nonreactive [facility] Hepatitis C Antibody Nonreactive Nonreactive [facility] Comment:Antibodies to HCV no t detected; does not exclude early acuteHCV infection. Hepatitis B Surface Ag Negative Negative [facility] Blood Venous blood specimen / Unknown 09/12/2024 9:57 AM EDT 09/12/2024 2:07 PM EDT Sharri Nuñez MD LAB BLOOD ORDERABLES Final Re sult Performing Organization Address [facility] Co de Phone Number [facility] [address] [place] [phone] * HIV-1/2 Antigen and Antibodies, Fourth Generation, with Reflexes (09/12/2024 9:57 AM EDT) Pathologist [facility] HIV AB/AG Nonreactive Nonreactive [facility] Comment:HIV-1 p24 Ag and/or HIV-1/HIV-2 Ab not detected.A test result that is nonreactive does not exclude thepossibility of exposure to or infection with HIV-1 and/orHIV-2. Nonreactive results in this assay for individualswith prior exposure to HIV-1 and/or HIV-2 may be due toantigen and antibody levels that are below the limit ofdetection of this assay.[facility] HIV Ag/Ab Combo assay result andsupplemental assay results should be interpreted inconjunction with the patient's clinical presentation,history and other laboratory results. If the results areinconsistent with clinical evidence, additional testing issuggested to confirm the result. Blood Venous blood specimen / Unknown 09/12/2024 9:57 AM EDT 09/12/2024 2:07 PM EDT Sharri Nuñez MD LAB BLOOD ORDERABLES Final Re sult Performing Organization Address [facility] Co de Phone Number [facility] [address] [place] [phone] * Mammography (09/14/2023) Pathologist [facility] Mammogram BIRADS 1 Normal, Abnormal, BIRADS 1 , BIRADS 2 Anatomical Region Laterality Modality Other Narrative 09/14/2023 09/08/23 Mammo with Upper outer quadrant Left breast asymmetry had compression test (09/14/23) and it was normal. Records scanned in EMR from [facility] Sharri Nuñez MD HEALTH MAINTENANCE Final Resu lt * Cologuard?? colon cancer screening (07/22/2022) Cologuard Cancer Screen Negative Stool 07/22/2022 Sharri Nuñez MD LAB MOLECULAR DIAGNOSTICS ORD ERABLES Final Result from Last 3 Months or Most Recently Relevant to Health Maintenance Insurance [employer] C3 Care Teams Md Pediatric Allergist Relationship Specialty Start Date End Date Sharri Nuñez MD [address] [place] [address] PCP - General Family Medicine 01/01/21
--- OUTSIDE RECORDS SUMMARY | 2025-04-17 08:55 | XMS_ITS | Clinical Summary ---
Author Organization [facility] Address [address] [place] [address] Phone Care Team Providers Care Space Control Supervisor Name Role Phone Physician, Pcp Unknown Primary [...] on file Sexual Orientation Not on file Last Filed Vital Signs Vital Sign Reading [...] AM EDT Narrative 09/10/2023 8:28 AM EDT [facility] Diagnostic Imaging Department [address] [place] [address] Patient: MILES STANLEY /Age/Sex: 1970 - 53 - F Unit#: [id number] Location/Status: SPDIMAM/REG CLI Mnemonic/Ordering Site: [facility] Ordering Physician: SHARRI NUÑEZ MD [facility] Screening Digital - 09/08/23 - 0939 Report Status:Signed EXAM: [facility] Screening Digital EXAM DATE AND TIME: 09/08/2023 9:39 AM HISTORY: Annual screening COMPARISON: Multiple exams dating back to 2016 TECHNIQUE: Bilateral digital breast tomosynthesis was performed in the CC and MLO projections. Computer aided detection with ZetrOZ 3D 3.1 was employed. TISSUE DENSITY: b. [...] Procedure Note Porter Lacy MD - 12/20/2023 [facility] Diagnostic Imaging Department [address] [place] [address] Patient: MILES STANLEY./Age/Sex: 1970 - 53 - F Unit#: [id number] Location/Status: [facility]/REG CLI Mnemonic/Ordering Site: [facility] Ordering Physician: SHARRI NUÑEZ MD [facility] Screening Digital - 09/08/23 - 0939 Report Status:Signed EXAM: [facility] Screening Digital EXAM DATE AND TIME: 09/08/2023 9:39 AM HISTORY: Annual screening COMPARISON: Multiple exams dating back to 2016 TECHNIQUE: Bilateral digital breast tomosynthesis was performed in the CCand MLO projections. Computer aided detection with ZetrOZ 3D 3.1was employed. TISSUE DENSITY: b. There [...] RESULTING AGENCY - 10/04/2017 2:37 PM EDT [id number] THINPREP PAP, IMAGED: NEGATIVE FOR SQUAMOUS INTRAEPITHELIAL [...] to Health Maintenance Insurance [place] - [place] [facility] Care Teams Space Control Supervisor Relationship Specialty Start Date End Date Physician, Pcp Unknown PCP - General 10/19/24
--- OUTSIDE RECORDS SUMMARY | 2025-04-17 08:55 | XMS_ITS | Encounter Summary ---
Author Organization [employer] Address [address] [facility] 7t [place] [address] Care Team Providers Care Pet Caregiver Name Role Phone Sharri Nuñez MD Primary Care Provider [phone] Reason for Visit * Reason Onset Date Comments Nurse Triage 04/03/2025 Encounter Details Date Type Department Care Team ([facility] st Contact Info) Description 04/03/2025 Telephone [facility] MEDICINE [address] [place] [address] Sharri Nuñez MD [address] [place] [address] Nurse Triage Social History Tobacco Use Types [...] encounter Miscellaneous Notes * Telephone Encounter - Maura Small - 04/03/2025 10:54 AM EST Symptoms: Dizziness, Headache, Lethargic (Tired) Outcome: Transfer to a nurse or provider NOW! Reason: Hard to wake up The caller accepted this outcome. documented in this encounter Plan of Treatment Upcoming Encounters Date Type Department Care Team ([facility] st Contact Info) Description 04/20/2025 8:45 AM EST Office Visit [facility] MED & PEDS [address] [place] [address] Sharri Nuñez MD [address] [place] [address] documented as of this encounter Visit Diagnoses Not on filedocumented in this encounter Additional Health Concerns Assessment Noted Time PHQ-9 Depression Total Score: 13 025 2:12 PM EDT documented as of this encounter Care Teams Pet Caregiver Relationship Specialty Start Date End Date Sharri Nuñez MD [address] [place] [phone] PCP - General Family Medicine 01/01/21 documented as of this encounter
--- OUTSIDE RECORDS SUMMARY | 2025-04-17 08:55 | XMS_ITS | Encounter Summary ---
Author Organization [employer] Address 75 [facility] 7t [place] [address] Care Team Providers Care Bootmaker Hand Name Role Phone Sharri Nuñez MD Primary Care Provider [phone] Reason for Visit * Reason Comments Pre-visit Planning SDOH was already com pleted Encounter Details Date Type Department Care Team ([facility] Contact Info) Description 04/13/2025 Patient Outreach [facility] MED & PEDS [address] [place] [address] Sharri Nuñez MD [address] [place] [address] Pre-visit Planning (SDOH was already completed ) Social History Tobacco Use Types Packs/Day Years [...] AM EDT documented as of this encounter Progress Notes * Carla Arguello - 04/13/2025 9:36 AM EST CC Carla Miranda placed successful outbound call to patient for pre-visit planning. Patient name and confirmed. Patient confirms appt date and time, and has transportation arrangements. Biggest concern for appointment at this time is no concerns. Appropriate screenings completed in anticipation ofappointment. documented in this encounter Plan of Treatment Upcoming Encounters Date Type Department Care Team (Late st Contact Info) Description 04/20/2025 8:45 AM EST Office Visit [facility] MED [facility] PEDS [address] [place] [address] Sharri Nuñez MD [address] [place] [address] documented as of this encounter Visit Diagnoses Not on filedocumented in this encounter Additional Health Concerns Assessment Noted Time PHQ-9 Depression Total Score: 13 025 2:12 PM EDT documented as of this encounter Care Teams Bootmaker Hand Relationship Specialty Start Date End Date Sharri Nuñez MD [address] [place] [address] PCP - General Family Medicine 01/01/21 documented as of this encounter
--- OUTSIDE RECORDS SUMMARY | 2025-04-17 08:55 | XMS_ITS | Encounter Summary ---
Author Organization [employer] Address [address] [facility] 7t [place] [address] Care Team Providers Care Receiving Room Clerk Name Role Phone Sharri Nuñez MD Primary Care Provider [phone] Reason for Visit * Reason Onset Date Comments Nurse Triage 11/20/2024 Encounter Details Date Type Department Care Team ([facility] Contact Info) Description 11/20/2024 Telephone [facility] MED & PEDS [address] [place] [address] Sharri Nuñez MD [address] [place] [address] Nurse Triage Social History Tobacco Use Types [...] anxiety. ASK apt with Dr. Rice in [facility] 11/23/24 @ 1130am. Pt agrees with [...] caller accepted this outcome. Contact pt at [phone] documented in this encounter Plan of Treatment Upcoming Encounters Date Type Department Care Team (Late st Contact Info) Description 04/20/2025 8:45 AM EST Office Visit [facility] MED & PEDS [address] [place] [address] Sharri Nuñez MD [address] [place] [address] documented as of this encounter Visit Diagnoses Not on filedocumented in this encounter Additional Health Concerns Assessment Noted Time PHQ-9 Depression Total Score: 13 025 2:12 PM EDT documented as of this encounter Care Teams Receiving Room Clerk Relationship Specialty Start Date End Date Sharri Nuñez MD [address] [place] [address] PCP - General Family Medicine 01/01/21 documented as of this encounter
--- OUTSIDE RECORDS SUMMARY | 2025-04-17 08:55 | XMS_ITS | Encounter Summary ---
Author Organization [employer] Address [address] [facility] [address] 7t [place] [address] Care Team Providers Care Health Safety Instructor Name Role Phone Sharri Nuñez MD Primary Care Provider Reason for Visit * Reason Onset Date Comments Appointment Request 09/14/2023 Encounter Details Date Type Department Care Team ([facility] st Contact Info) Description 09/14/2023 Telephone [facility] MEDICINE [address] [place] [address] Sharri Nuñez MD [address] [place] [address] Appointment Request Social History Tobacco Use Types [...] Description 04/20/2025 8:45 AM EST Office Visit [facility] CH[facility] MED & PEDS [address] [place] [address] Sharri Nuñez MD [address] [place] [address] documented as of this encounter Visit Diagnoses Not on filedocumented in this encounter Additional Health Concerns Assessment Noted Time PHQ-9 Depression Total Score: 8 08/19/19 24 10:22 AM EDT documented as of this encounter Care Teams Health Safety Instructor Relationship Specialty Start Date End Date Sharri Nuñez MD [address] [place] [address] PCP - General Family Medicine 01/01/21 documented as of this encounter
--- OUTSIDE RECORDS SUMMARY | 2025-04-17 08:55 | XMS_ITS | Encounter Summary ---
Author Organization [employer] Address [address] [facility] [address] 7[address] [place] [address] Care Team Providers Care Checkering Machine Operator Name Role Phone Sharri Nuñez MD Primary Care Provider [phone] Reason for Visit * Reason Onset Date Comments Appointment Request 08/18/2024 Encounter Details Date Type Department Care Team ([facility] st Contact Info) Description 08/18/2024 Telephone [facility] MEDICINE [address] [place] [address] Sharri Nuñez MD [address] [place] [address] Appointment Request Social History Tobacco Use Types [...] Description 04/20/2025 8:45 AM EST Office Visit [facility] MED & PEDS [address] [place] [address] Sharri Nuñez MD [address] [place] [address] documented as of this encounter Visit Diagnoses Not on filedocumented in this encounter Additional Health Concerns Assessment Noted Time PHQ-9 Depression Total Score: 8 08/19/19 24 10:22 AM EDT documented as of this encounter Care Teams Checkering Machine Operator Relationship Specialty Start Date End Date Sharri Nuñez MD [address] [place] [phone] PCP - General Family Medicine 01/01/21 documented as of this encounter
== END 2025-04-17 09:00 | disposition home or self-care (01) ==
LOC: HO.HOS 08:28
PROVIDERS: PCP Family Medicine; Visit Provider Orthopaedic Surgery
DX: S83.242A Other tear of medial meniscus, current injury, left knee, initial encounter (principal)
CPT/HCPCS: 99214

== ENCOUNTER → 2025-04-17 08:27 | Outpatient (BNVA) | payer MEDICAID, SELFPAY | PROVIDERS: PCP Family Medicine; Visit Provider Orthopaedic Surgery | DX: S83.242A Other tear of medial meniscus, current injury, left knee, initial encounter (principal); W19.XXXA Unspecified fall, initial encounter; Y92.9 Unspecified place or not applicable; Y93.9 Activity, unspecified; Y99.9 Unspecified external cause status | CPT/HCPCS: 99212 ==